=== PATIENT | female | born 2000 | race Caucasian/White ===

== ENCOUNTER 2022-06-16 19:27 | Emergency (ER) | payer BC, OTHER ==
--- OUTSIDE RECORDS SUMMARY | 2022-06-16 19:34 | XMS REPORT | Continuity of Care Document ---
:2000 Author Organization [facility] t Address [address] [place] [address] Support Name Relationship Address Phone ELIESER WILDER [phone] [facility] [facility] [address] [place] [phone] [place] [phone] ELIESER WILDER [phone] [facility] [facility] [address] [phone] [place] [address] YA ZAMUDIO E [phone] 3 [place] [address] Shreya Zamudio Mother [phone] 418 [place] [address] PHYSICIAN, NO Primary Care Physician Unavailable Unavailab MD JENNIFER Osborn Admitting Provider [address] [phone] [place] [address] ELIESER WILDER Family Member [address] [place] [address] MD JONO Emergency Provider [address] [phone] GALLITO Monge [place] [phone] MD WANDA CLEARWATER Emergency Provider [address] [email or web address] [address] DO GEE FENG Admitting Provider [address] [facility] [address] MD HARSH HUIZAR Emergency Provider [address] [place] [address] MD Salvador Simons Emergency Provider [address] [place] [phone] DO SALVADOR SIMONS Emergency Provider [facility] [place] [address] MD VERNELL HERNÁNDEZ Emergency Provider [facility] [place] [address] Care Team Providers Name Role Phone Fernanda Hardwick Primary Care Physician Cruz Murphy Attending Clinician Unavailable IHDE_G Attending Clinician Unavailable Jaswant Taylor MD Attending Clinician [phone] JASWANT TAYLOR Attending Clinician Unavailable VERNELL HERNÁNDEZ Attending Clinician Unavailable Salvador Simons Attending Clinician Unavailable Amy Pal Attending Clinician Unavailable PAT HUTCHINSON Attending Clinician Unavailable Harry_Pappas Attending Clinician Unavailable CHERISE ORTIZ Attending Clinician Unavailable Jennifer Boothe Attending Clinician Unavailable HARSH HUIZAR Attending Clinician Unavailable Gee Feng Attending Clinician Unavailable GALLITO DE LA CRUZ Attending Clinician Unavailable RIDGE SANTOS Attending Clinician Unavailable Cruz Murphy Admitting Clinician Unavailable Physician, No Primary or Family Admitting Clinician Unavaila ble IHDE_G Admitting Clinician Unavailable G_Pappas Admitting Clinician Unavailable Gee Feng Admitting Clinician Unavailable Jennifer Boothe Admitting Clinician Unavailable Payers Payer Name Policy Type Policy Number Effective Date Expiration Date Donna felix [place] [id number] 2007 (PPO) 00:00:00 [facility] [id number] 2020 [place]:00 STAR+PLUS (MEDICAID REPLACEMENT - HMO) Problems Condition Condition Condition Status Onset Resolution Last Treating Co mments Source Name Details Category Date Date Treatment Clinician Date Mild Mild Problem Active [facility] hyperemesi Hyperemesi 9-15 da s-not s-not 00:00: Medical delivered Delivered 00 Grou p Allergies, Adverse Reactions, Alerts Allergy Allergy Status Severity Reaction(s) Onset Inactive Treating Comm ents Source Name Type Date Date Clinician No Known DA Active [facility] 4[facility] Clear s 00:[facility]: [place] KETAMINE [facility] Ket[facility] Drug [facility] Ketamine Allergy Active [facility] Medical e Group Social History Social Habit Start Date Stop Date Quantity Comments Source Tobacco use and 2022-05-12 2022-05-12 [address] [facility] exposure [facility]00 [facility]00 [facility] Sex Assigned At 2000 2001 [facility] gadiel 00:00:00 00:00:00 [facility] Center Smoking Status Start Date Stop Date Source Never smoked tobacco [facility] Medications Ordered Filled Start Stop Current Ordering Indication Dosage Frequency Signature Comments Components Source Medication Medication Date Date Medication? Clinician (SIG) Name Name PARoxetine Yes 40mg QD Take 1 [facility] 40 2-01 tablet (40 [facility] es [facility] tablet 00:00: mg total) Med ical 00 by mouth Center in the morning. PARoxetine Yes 40mg QD Take 1 [facility] 40 2-01 tablet (40 [facility] MG tablet 00:00: mg total) Med ical 00 by mouth Center in the morning. PARoxetine Yes 40mg QD Take 1 [facility] 2-01 tablet (40 Julius es MG tablet 00:00: mg total) Med ical 00 by mouth Center in the morning. [facility] Fe 2021-02 No [facility] Fe [facility] 03/07 (28) 1 03/07 (28) 1 2-13 03/07 () da mg-20 mcg mg-20 mcg 00:00: 1 mg-20 Medical (21)/75 mg (21)/75 mg 00 mcg Joann up (7) tablet (7) tablet (21)/75 mg TAKE 1 TAKE 1 (7) tablet TABLET BY TABLET BY TAKE 1 MOUTH EVERY MOUTH EVERY TABLET BY DAY DAY MOUTH EVERY DAY esomeprazol esomeprazol 2021-02 No esomeprazo [facility] e magnesium e magnesium 2-13 le d a 40 mg 40 mg 00:00: magnesium Medica l capsule,del capsule,del 00 40 mg Group ayed ayed capsule,de release release layed release paroxetine paroxetine 2021-02 No paroxetine [facility] 40 mg 40 mg 2-13 40 mg da tablet tablet 00:00: tablet Medical 00 Group esomeprazol esomeprazol 2021-02 No esomeprazo [facility] e magnesium e magnesium 2-13 le d a 40 mg 40 mg 00:00: magnesium Medica l capsule,del capsule,del 00 40 mg Group ayed ayed capsule,de release release layed release ParaGard T ParaGard T No ParaGard T [facility] 380A 380 380A 380 9-09 380A 380 da square mm square mm 15:22: square mm Medical intrauterin intrauterin 00 intrauteri Group e e ne deviceTake deviceTake deviceTake 1 device by 1 device by 1 device intrauterin intrauterin by e route. e route. intrauteri ne route. doxycycline doxycycline No 1capsul BID doxycyclin [facility] monohydrate monohydrate e(s) e d a 100 mg 100 mg monohydrat Medic al capsule capsule e 100 mg Group Take 1 Take 1 capsule capsule capsule Take 1 twice a day twice a day capsule by oral by oral twice a route for 7 route for 7 day by days. days. oral route for 7 days. Flagyl 500 Flagyl 500 No 1 BID Flagyl 500 [facility] mg tablet mg tablet mg tablet da Take 1 Take 1 Take 1 Medical tablet tablet tablet Group twice a day twice a day twice a by oral by oral day by route for 7 route for 7 oral route days. days. for 7 days. fluconazole fluconazole No 1 fluconazol [facility] 150 mg 150 mg e 150 mg da tablet Take tablet Take tablet Medical 1 tablet 1 tablet Take 1 Group every 72 every 72 tablet hours by hours by every 72 oral route. oral route. hours by oral route. ParaGard T ParaGard T No ParaGard T [facility] 380A 380 380A 380 380A 380 da square mm square mm square mm Medical intrauterin intrauterin intrauteri Group e device e device ne device Vitafol Vitafol No Vitafol [facility] Ultra 29 mg Ultra 29 mg Ultra 29 da iron-1 iron-1 mg iron-1 Medica l mg-200 mg mg-200 mg mg-200 mg Group capsule capsule capsule doxycycline doxycycline No doxycyclin [facility] monohydrate monohydrate e d a 100 mg 100 mg monohydrat Medic al capsule capsule e 100 mg Group TAKE 1 TAKE 1 capsule CAPSULE BY CAPSULE BY TAKE 1 MOUTH TWICE MOUTH TWICE CAPSULE BY DAILY FOR 7 DAILY FOR 7 MOUTH DAYS DAYS TWICE DAILY FOR 7 DAYS esomeprazol esomeprazol No esomeprazo [facility] e magnesium e magnesium le d a 40 mg 40 mg magnesium Medical capsule,del capsule,del 40 mg Group ayed ayed capsule,de release release layed release fluconazole fluconazole No fluconazol [facility] 150 mg 150 mg e 150 mg da tablet TAKE tablet TAKE tablet Medical 1 TABLET BY 1 TABLET BY TAKE 1 Group MOUTH EVERY MOUTH EVERY TABLET BY 72 HOURS 72 HOURS MOUTH EVERY 72 HOURS metronidazo metronidazo No metronidaz [facility] le 500 mg le 500 mg ole 500 mg da tablet TAKE tablet TAKE tablet Medical 1 TABLET BY 1 TABLET BY TAKE 1 Group MOUTH TWICE MOUTH TWICE TABLET BY DAILY FOR 7 DAILY FOR 7 MOUTH DAYS DAYS TWICE DAILY FOR 7 DAYS ondansetron ondansetron No ondansetro [facility] 8 mg 8 mg n 8 mg da disintegrat disintegrat disintegra Medical ing tablet ing tablet tin Joann up DISSOLVE 1 DISSOLVE 1 tablet TABLET BY TABLET BY DISSOLVE 1 MOUTH EVERY MOUTH EVERY TABLET BY 8 HOURS 8 HOURS MOUTH NEEDED NEEDED EVERY 8 HOURS NEEDED ParaGard T ParaGard T No 1device ParaGard T [facility] 380A 380 380A 380 (s) 380A 380 da square mm square mm square mm Medical intrauterin intrauterin intrauteri Group e device e device ne device Take 1 Take 1 Take 1 device by device by device by intrauterin intrauterin intrauteri e route. e route. ne route. Vitafol Vitafol No Vitafol [facility] Ultra 29 mg Ultra 29 mg Ultra 29 da iron-1 iron-1 mg iron-1 Medica l mg-200 mg mg-200 mg mg-200 mg Group capsule capsule capsule doxycycline doxycycline No doxycyclin [facility] monohydrate monohydrate e d a 100 mg 100 mg monohydrat Medic al capsule capsule e 100 mg Group TAKE 1 TAKE 1 capsule CAPSULE BY CAPSULE BY TAKE 1 MOUTH TWICE MOUTH TWICE CAPSULE BY DAILY FOR 7 DAILY FOR 7 MOUTH DAYS DAYS TWICE DAILY FOR 7 DAYS esomeprazol esomeprazol No esomeprazo [facility] e magnesium e magnesium le d a 40 mg 40 mg magnesium Medical capsule,del capsule,del 40 mg Group ayed ayed capsule,de release release layed release fluconazole fluconazole No fluconazol [facility] 150 mg 150 mg e 150 mg da tablet TAKE tablet TAKE tablet Medical 1 TABLET BY 1 TABLET BY TAKE 1 Group MOUTH EVERY MOUTH EVERY TABLET BY 72 HOURS 72 HOURS MOUTH EVERY 72 HOURS metronidazo metronidazo No metronidaz [facility] le 500 mg le 500 mg ole 500 mg da tablet TAKE tablet TAKE tablet Medical 1 TABLET BY 1 TABLET BY TAKE 1 Group MOUTH TWICE MOUTH TWICE TABLET BY DAILY FOR 7 DAILY FOR 7 MOUTH DAYS DAYS TWICE DAILY FOR 7 DAYS ondansetron ondansetron No ondansetro [facility] 8 mg 8 mg n 8 mg da disintegrat disintegrat disintegra Medical ing tablet ing tablet ting Joann up DISSOLVE 1 DISSOLVE 1 tablet TABLET BY TABLET BY DISSOLVE 1 MOUTH EVERY MOUTH EVERY TABLET BY 8 HOURS 8 HOURS MOUTH NEEDED NEEDED EVERY 8 HOURS NEEDED ParaGard T ParaGard T No 1device ParaGard T [facility] 380A 380 380A 380 (s) 380A 380 da square mm square mm square mm Medical intrauterin intrauterin intrauteri Group e device e device ne device Take 1 Take 1 Take 1 device by device by device by intrauterin intrauterin intrauteri e route. e route. ne route. Vitafol Vitafol No Vitafol [facility] Ultra 29 mg Ultra 29 mg Ultra 29 da iron-1 iron-1 mg iron-1 Medica l mg-200 mg mg-200 mg mg-200 mg Group capsule capsule capsule acetaminoph acetaminoph No acetaminop [facility] en 300 en 300 hen 300 da mg-codeine mg-codeine mg-codeine Medical 30 mg 30 mg 30 mg Group tablet TAKE tablet TAKE tablet 1 TABLET BY 1 TABLET BY TAKE 1 MOUTH EVERY MOUTH EVERY TABLET BY 6 HOURS 6 HOURS MOUTH NEEDED FOR NEEDED FOR EVERY 6 DENTAL PAIN DENTAL PAIN HOURS NEEDED FOR DENTAL PAIN chlorhexidi chlorhexidi No chlorhexid [facility] ne ne ine da gluconate gluconate gluconate Medical 0.12 % 0.12 % 0.12 % Group mouthwash mouthwash mouthwash SWISH 15 ML SWISH 15 ML SWISH 15 FOR 30 FOR 30 ML FOR 30 SECONDS AND SECONDS AND SECONDS SPIT TWICE SPIT TWICE AND SPIT DAILY DAILY TWICE DAILY esomeprazol esomeprazol No esomeprazo [facility] e magnesium e magnesium le d a 40 mg 40 mg magnesium Medical capsule,del capsule,del 40 mg Group ayed ayed capsule,de release release layed release fluconazole fluconazole No fluconazol [facility] 150 mg 150 mg e 150 mg da tablet TAKE tablet TAKE tablet Medical 1 TABLET BY 1 TABLET BY TAKE 1 Group MOUTH EVERY MOUTH EVERY TABLET BY 72 HOURS 72 HOURS MOUTH EVERY 72 HOURS ibuprofen ibuprofen No ibuprofen [facility] 600 mg 600 mg 600 mg da tablet TAKE tablet TAKE tablet Medical 1 TABLET BY 1 TABLET BY TAKE 1 Group MOUTH EVERY MOUTH EVERY TABLET BY 6 HOURS 6 HOURS MOUTH NEEDED NEEDED EVERY 6 HOURS NEEDED No 1 Q1D [facility] 03/07 () 1 03/07 () 1 03/07 () da mg-20 mcg mg-20 mcg 1 mg-20 Me dical (21)/75 mg (21)/75 mg mcg Joann up (7) tablet (7) tablet (21)/75 mg Take 1 Take 1 (7) tablet tablet tablet Take 1 every day every day tablet by oral by oral every day route. route. by oral route. pantoprazol pantoprazol No pantoprazo [facility] e 40 mg e 40 mg le 40 mg da tablet,noé tablet,noé tablet,del Medical yed release yed release ayed G roup release ParaGard T ParaGard T No 1device ParaGard T [facility] 380A 380 380A 380 (s) 380A 380 da square mm square mm square mm Medical intrauterin intrauterin intrauteri Group e device e device ne device Take 1 Take 1 Take 1 device by device by device by intrauterin intrauterin intrauteri e route. e route. ne route. paroxetine paroxetine No paroxetine [facility] 40 mg 40 mg 40 mg da tablet tablet tablet Medical Group Bl[facility] Fe Bl[facility]ovi Fe No Bl[place] Fe [facility] 03/07 () 1 03/07 () 1 03/07 () da mg-20 mcg mg-20 mcg 1 mg-20 Me dical (21)/75 mg (21)/75 mg mcg Joann up (7) tablet (7) tablet (21)/75 mg TAKE 1 TAKE 1 (7) tablet TABLET BY TABLET BY TAKE 1 MOUTH EVERY MOUTH EVERY TABLET BY DAY DAY MOUTH EVERY DAY paroxetine paroxetine No paroxetine [facility] 40 mg 40 mg 40 mg da tablet tablet tablet Medical Group [place] Fe Blisovi Fe No Bl[place] Fe [facility] 03/07 () 1 03/07 () 1 03/07 () da mg-20 mcg mg-20 mcg 1 mg-20 Me dical (21)/75 mg (21)/75 mg mcg Joann up (7) tablet (7) tablet (21)/75 mg TAKE 1 TAKE 1 (7) tablet TABLET BY TABLET BY TAKE 1 MOUTH EVERY MOUTH EVERY TABLET BY DAY DAY MOUTH EVERY DAY cholestyram cholestyram No cholestyra [facility] ine (with ine (with mine (with da sugar) 4 sugar) 4 sugar) 4 Med ical gram powder gram powder gram G roup for susp in for susp in powder for a packet a packet susp in a packet pantoprazol pantoprazol No pantoprazo [facility] e 40 mg e 40 mg le 40 mg da tablet,noé tablet,noé tablet,del Medical yed release yed release ayed G roup TAKE 1 TAKE 1 release TABLET BY TABLET BY TAKE 1 MOUTH DAILY MOUTH DAILY TABLET BY MOUTH DAILY paroxetine paroxetine No paroxetine [facility] 40 mg 40 mg 40 mg da tablet tablet tablet Medical Group [place] Fe Blisovi Fe No Blisovi Fe [facility] 03/07 () 1 03/07 () 1 03/07 () da mg-20 mcg mg-20 mcg 1 mg-20 Me dical (21)/75 mg (21)/75 mg mcg Joann up (7) tablet (7) tablet (21)/75 mg TAKE 1 TAKE 1 (7) tablet TABLET BY TABLET BY TAKE 1 MOUTH EVERY MOUTH EVERY TABLET BY DAY DAY MOUTH EVERY DAY cholestyram cholestyram No cholestyra [facility] ine (with ine (with mine (with da sugar) 4 sugar) 4 sugar) 4 Med ical gram powder gram powder gram G roup for susp in for susp in powder for a packet a packet susp in a packet pantoprazol pantoprazol No pantoprazo [facility] e 40 mg e 40 mg le 40 mg da tablet,noé tablet,noé tablet,del Medical yed release yed release ayed G roup TAKE 1 TAKE 1 release TABLET BY TABLET BY TAKE 1 MOUTH DAILY MOUTH DAILY TABLET BY MOUTH DAILY paroxetine paroxetine No paroxetine [facility] 40 mg 40 mg 40 mg da tablet tablet tablet Medical Group amoxicillin amoxicillin No amoxicilli [facility] [id number] n 875 da mg-potassiu mg-potassiu mg-potassi Medical m m um Group clavulanate clavulanate clavulanat 125 mg 125 mg e 125 mg tablet TAKE tablet TAKE tablet 1 TABLET BY 1 TABLET BY TAKE 1 MOUTH TWICE MOUTH TWICE TABLET BY DAILY FOR DAILY FOR MOUTH INFECTION INFECTION TWICE DAILY FOR INFECTION [facility] Fe Blisovi Fe No Bl[place] Fe [facility] 03/07 (28) 1 03/07 (28) 1 03/07 () da mg-20 mcg mg-20 mcg 1 mg-20 Me dical (21)/75 mg (21)/75 mg mcg Joann up (7) tablet (7) tablet (21)/75 mg TAKE 1 TAKE 1 (7) tablet TABLET BY TABLET BY TAKE 1 MOUTH EVERY MOUTH EVERY TABLET BY DAY DAY MOUTH EVERY DAY cholestyram cholestyram No cholestyra [facility] ine (with ine (with mine (with da sugar) 4 sugar) 4 sugar) 4 Med ical gram powder gram powder gram G roup for susp in for susp in powder for a packet a packet susp in a packet ibuprofen ibuprofen No 1 Q8H ibuprofen [facility] 800 mg 800 mg 800 mg da tablet Take tablet Take tablet Medical 1 tablet 1 tablet Take 1 Group every 8 every 8 tablet hours by hours by every 8 oral route oral route hours by as needed. as needed. oral route as needed. ketorolac ketorolac No ketorolac [facility] 10 mg 10 mg 10 mg da tablet TAKE tablet TAKE tablet Medical 1 TABLET BY 1 TABLET BY TAKE 1 Group MOUTH EVERY MOUTH EVERY TABLET BY 6 HOURS 6 HOURS MOUTH NEEDED FOR NEEDED FOR EVERY 6 PAIN PAIN HOURS NEEDED FOR PAIN pantoprazol pantoprazol No pantoprazo [facility] e 40 mg e 40 mg le 40 mg da tablet,noé tablet,noé tablet,del Medical yed release yed release ayed G roup TAKE 1 TAKE 1 release TABLET BY TABLET BY TAKE 1 MOUTH DAILY MOUTH DAILY TABLET BY MOUTH DAILY paroxetine paroxetine No paroxetine [facility] 40 mg 40 mg 40 mg da tablet tablet tablet Medical Group promethazin promethazin No promethazi [facility] e 25 mg e 25 mg ne 25 mg da tablet TAKE tablet TAKE tablet Medical 1 TABLET BY 1 TABLET BY TAKE 1 Group MOUTH EVERY MOUTH EVERY TABLET BY 6 HOURS FOR 6 HOURS FOR MOUTH NAUSEA NAUSEA EVERY 6 HOURS FOR NAUSEA Immunizations Ordered Immunization Filled Immunization Date Status Commen ts Source Name Name Tdap Tdap 2021-03-07 Completed [facility] Group Tdap Tdap 2021-03-07 Completed [facility] 00:00:00 Medical Group Tdap Tdap 2021-03-07 Completed [facility] 00:00:00 Medical Group influenza, influenza, 2021-01-24 Completed [facility] injectable, injectable, 00:00:00 Medical Grou p quadrivalent, quadrivalent, preservative free preservative free influenza, influenza, 2021-01-24 Completed [facility] injectable, injectable, 00:00:00 Medical Grou p quadrivalent, quadrivalent, preservative free preservative free influenza, influenza, 2021-01-24 Completed [facility] injectable, injectable, 00:00:00 Medical Grou p quadrivalent, quadrivalent, preservative free preservative free influenza, influenza, 2021-01-24 Completed [facility] injectable, injectable, 00:00:00 Medical Grou p quadrivalent, quadrivalent, preservative free preservative free HPV, unspecified HPV, unspecified 2014-08-03 Completed [facility] formulation - ML formulation - ML 00:00:00 Ga dical Group HPV, unspecified HPV, unspecified 2014-08-03 Completed [facility] formulation - ML formulation - ML 00:00:00 Me dical Group meningococcal MCV4P meningococcal MCV4P 2012-11-08 Completed [facility] - ML - ML 00:00:00 Medical Group Tdap - ML Tdap - ML 2012-11-08 Completed [facility] 00:00:00 Medical Group meningococcal MCV4P meningococcal MCV4P 2012-11-08 Completed [facility] - ML - ML 00:00:00 Medical Group Tdap - ML Tdap - ML 2012-11-08 Completed [facility] 00:00:00 Medical Group influenza, seasonal, influenza, seasonal, 2011-12-15 Completed [facility] injectable - ML injectable - ML 00:00:00 Medi [facility] Group influenza, seasonal, influenza, seasonal, 2011-12-15 Completed [facility] injectable - ML injectable - ML 00:00:00 Medi anurad[facility] Group influenza, seasonal, influenza, seasonal, 2009-12-17 Completed [facility] injectable - ML injectable - ML 00:00:00 Medi an[facility]ad[facility] Group influenza, seasonal, influenza, seasonal, 2009-12-17 Completed [facility] injectable - ML injectable - ML 00:00:00 Medi [facility] Group Hep B, adolescent or Hep B, adolescent or 2001 Completed [facility] pediatric - ML pediatric - ML 00:00:00 Medica l Group Hep B, adolescent or Hep B, adolescent or 2001 Completed [facility] pediatric - ML pediatric - ML 00:00:00 Medica l Group Vital Signs Vital Name Observation Time Observation Value Comments Source BP Diastolic 2022-05-21 00:00:00 80 mm[Hg] [facility] Height 2022-05-21 00:00:00 61 [in_i] [facility] BMI (Body Mass 2022-05-21 00:00:00 40 kg/m2 [facility]) Group BP Systolic 2022-05-21 00:00:00 122 mm[Hg] [facility] Body Weight 2022-05-21 00:00:00 211.7 [lb_av] [facility] HEIGHT 2022-05-12 15:22:00 154.9 cm WEIGHT 2022-05-12 15:22:00 95.346 kg HEIGHT 2022-05-12 15:22:00 154.9 cm WEIGHT 2022-05-12 15:22:00 95.346 kg BP Diastolic 2022-04-15 00:00:00 80 mm[Hg] [facility] Height 2022-04-15 00:00:00 61 [in_i] [facility] BMI (Body Mass 2022-04-15 00:00:00 41.2 kg/m2 [facility]) Group BP Systolic 2022-04-15 00:00:00 120 mm[Hg] [facility] Body Weight 2022-04-15 00:00:00 218 [lb_av] [facility] BP Diastolic 2022-04-03 00:00:00 78 mm[Hg] [facility] Height 2022-04-03 00:00:00 61 [in_i] [facility] BMI (Body Mass 2022-04-03 00:00:00 41.2 kg/m2 [facility]) Group BP Systolic 2022-04-03 00:00:00 138 mm[Hg] [facility] Body Weight 2022-04-03 00:00:00 218 [lb_av] [facility] BP Diastolic 2022-02-27 00:00:00 90 mm[Hg] [facility] Height 2022-02-27 00:00:00 61 [in_i] [facility] BMI (Body Mass 2022-02-27 00:00:00 40.1 kg/m2 [facility]) Group BP Systolic 2022-02-27 00:00:00 140 mm[Hg] [facility] Body Weight 2022-02-27 00:00:00 212 [lb_av] [facility] BP Diastolic 2022-01-28 00:00:00 72 mm[Hg] [facility] Height 2022-01-28 00:00:00 61 [in_i] [facility] BMI (Body Mass 2022-01-28 00:00:00 40.6 kg/m2 [facility] Group BP Systolic 2022-01-28 00:00:00 132 mm[Hg] [facility] Body Weight 2022-01-28 00:00:00 215 [lb_av] [facility] BP Diastolic 2022-01-15 00:00:00 82 mm[Hg] [facility] Height 2022-01-15 00:00:00 61 [in_i] [facility] BMI (Body Mass 2022-01-15 00:00:00 39.9 kg/m2 [facility] Group BP Systolic 2022-01-15 00:00:00 119 mm[Hg] [facility] Body Weight 2022-01-15 00:00:00 211.1 [lb_av] [facility] BP Diastolic 2021-10-23 00:00:00 98 mm[Hg] [facility] Height 2021-10-23 00:00:00 61 [in_i] [facility] BMI (Body Mass 2021-10-23 00:00:00 38.7 kg/m2 [facility] Group BP Systolic 2021-10-23 00:00:00 127 mm[Hg] [facility] Body Weight 2021-10-23 00:00:00 205 [lb_av] [facility] Height 2021-10-16 00:00:00 61 [in_i] [facility] BP Diastolic 2021-10-16 00:00:00 82 mm[Hg] [facility] Height 2021-10-16 00:00:00 61 [in_i] [facility] BP Systolic 2021-10-16 00:00:00 124 mm[Hg] [facility] BP Diastolic 2021-08-06 00:00:00 73 mm[Hg] [facility] Height 2021-08-06 00:00:00 61 [in_i] [facility] BMI (Body Mass 2021-08-06 00:00:00 38 kg/m2 [facility] BP Systolic 2021-08-06 00:00:00 113 mm[Hg] [facility] Body Weight 2021-08-06 00:00:00 201 [lb_av] [facility] BP Diastolic 2021-06-14 00:00:00 84 mm[Hg] [facility] Height 2021-06-14 00:00:00 61 [in_i] [facility] BMI (Body Mass 2021-06-14 00:00:00 36.2 kg/m2 [facility] BP Systolic 2021-06-14 00:00:00 120 mm[Hg] [facility] Body Weight 2021-06-14 00:00:00 191.5 [lb_av] [facility] BP Diastolic 2021-05-29 00:00:00 86 mm[Hg] [facility] Height 2021-05-29 00:00:00 61 [in_i] [facility] BMI (Body Mass 2021-05-29 00:00:00 36.3 kg/m2 [facility] BP Systolic 2021-05-29 00:00:00 128 mm[Hg] [facility] Body Weight 2021-05-29 00:00:00 192 [lb_av] [facility] BP Diastolic 2021-05-20 00:00:00 83 mm[Hg] [facility] Height 2021-05-20 00:00:00 61 [in_i] [facility] BMI (Body Mass 2021-05-20 00:00:00 36.5 kg/m2 [facility] BP Systolic 2021-05-20 00:00:00 137 mm[Hg] [facility] Body Weight 2021-05-20 00:00:00 193 [lb_av] [facility] BP Diastolic 2021-05-08 00:00:00 77 mm[Hg] [facility] Height 2021-05-08 00:00:00 61 [in_i] [facility] BMI (Body Mass 2021-05-08 00:00:00 35.7 kg/m2 [facility] BP Systolic 2021-05-08 00:00:00 112 mm[Hg] [facility] Body Weight 2021-05-08 00:00:00 188.7 [lb_av] [facility] BP Diastolic 2021-04-12 00:00:00 88 mm[Hg] [facility] Height 2021-04-12 00:00:00 61 [in_i] [facility] BMI (Body Mass 2021-04-12 00:00:00 40.8 kg/m2 [facility] BP Systolic 2021-04-12 00:00:00 135 mm[Hg] [facility] Body Weight 2021-04-12 00:00:00 216 [lb_av] [facility] BP Diastolic 2021-04-05 00:00:00 83 mm[Hg] [facility] Height 2021-04-05 00:00:00 61 [in_i] [facility] BMI (Body Mass 2021-04-05 00:00:00 39.8 kg/m2 [facility]) Group BP Systolic 2021-04-05 00:00:00 131 mm[Hg] [facility] Body Weight 2021-04-05 00:00:00 210.9 [lb_av] [facility] BP Diastolic 2021-03-29 00:00:00 84 mm[Hg] [facility] Height 2021-03-29 00:00:00 61 [in_i] [facility] BMI (Body Mass 2021-03-29 00:00:00 39.8 kg/m2 [facility]) Group BP Systolic 2021-03-29 00:00:00 135 mm[Hg] [facility] Body Weight 2021-03-29 00:00:00 210.9 [lb_av] [facility] BP Diastolic 2021-03-04 00:00:00 89 mm[Hg] [facility] Height 2021-03-04 00:00:00 61 [in_i] [facility] BMI (Body Mass 2021-03-04 00:00:00 39.5 kg/m2 [facility]) Group BP Systolic 2021-03-04 00:00:00 146 mm[Hg] [facility] Body Weight 2021-03-04 00:00:00 208.9 [lb_av] [facility] BP Diastolic 2021-02-01 00:00:00 79 mm[Hg] [facility] Height 2021-02-01 00:00:00 61 [in_i] [facility] BP Systolic 2021-02-01 00:00:00 144 mm[Hg] [facility] BP Diastolic 2021-01-04 00:00:00 85 mm[Hg] [facility] Height 2021-01-04 00:00:00 61 [in_i] [facility] BMI (Body Mass 2021-01-04 00:00:00 37.4 kg/m2 [facility] program therapist Medical Index) Group BP Systolic 2021-01-04 00:00:00 126 mm[Hg] [facility] Body Weight 2021-01-04 00:00:00 198 [lb_av] [facility] BP Diastolic 2020-12-07 00:00:00 80 mm[Hg] [facility] Height 2020-12-07 00:00:00 61 [in_i] [facility] BMI (Body Mass 2020-12-07 00:00:00 36.8 kg/m2 [facility] Index) Group BP Systolic 2020-12-07 00:00:00 133 mm[Hg] [facility] Body Weight 2020-12-07 00:00:00 194.5 [lb_av] [facility] BP Diastolic 2020-11-15 00:00:00 79 mm[Hg] [facility] Height 2020-11-15 00:00:00 61 [in_i] [facility] BMI (Body Mass 2020-11-15 00:00:00 36.1 kg/m2 [facility] Index) Group BP Systolic 2020-11-15 00:00:00 131 mm[Hg] [facility] Body Weight 2020-11-15 00:00:00 190.8 [lb_av] [facility] BP Diastolic 2020-10-31 00:00:00 83 mm[Hg] [facility] Height 2020-10-31 00:00:00 61 [in_i] [facility] BMI (Body Mass 2020-10-31 00:00:00 36.1 [facility] BP Systolic 2020-10-31 00:00:00 127 mm[Hg] [facility] Body Weight 2020-10-31 00:00:00 191.1 [lb_av] [facility] Diastolic blood 2022-05-12 15:22:00 96 mm[Hg] [facility] 2022-05-12 15:22:00 90 /min [facility] Body temperature 2022-05-12 15:22:00 36.22 [facility] Body height 2022-05-12 15:22:00 154.9 cm [facility] Body weight 2022-05-12 15:22:00 97.977 kg [facility] BMI 2022-05-12 15:22:00 40.81 kg/m2 [facility] Systolic blood 2022-05-12 15:22:00 133 mm[Hg] [facility] Procedures Procedure Date / Time Performing Source Performed Clinician US, transvaginal 2022-05-21 [facility] 00:00:00 Medical Group US, transvaginal 2021-10-23 [facility] 00:00:00 Medical Group US, pelvis 2021-10-16 [facility] 00:00:00 Medical Group Laparoscopic Cholecystectomy 2021-05-04 [facility] Delivery 2021-04-20 [facility] 00:00:00 Medical Group US, obstetric, limited 2021-03-29 [facility] 00:00:00 Medical Group US, obstetric, limited 2021-03-04 [facility] 00:00:00 Medical Group ULTRASOUND, UTERUS REAL 2020-12-07 [facility] TIME WITH IMAGE DOC, AND 00:00:00 M edical Group MATERNAL EVAL PLUS DETAILED ANATOMIC EXAMINATION, TRANSABDOMINAL APPROACH; SINGLE OR FIRST GESTATION US, obstetric, limited 2020-12-07 [facility] 00:00:00 Medical Group US, obstetric, limited 2020-11-15 [facility] 00:00:00 Medical Group US, obstetric, limited 2020-10-31 [facility] 00:00:00 Medical Group Procedure on Nose [facility] Remove Tonsils and Adenoids [facility] Colonoscopy [facility] Esophagogastroduodenoscopy (Surg) [facility] Laparoscopic Hiatus Hernia Repair [facility] Plan of Care Planned Activity Planned Date Details Comments Source Future Scheduled Test 2031-03-07 DTAP/TDAP/TD [facility] 00:00:00 VACCINES (3 - Td or Medical Center Tdap) [code = DTAP/TDAP/TD VACCINES (3 - Td or Tdap)] Future Scheduled Test 2031-03-07 DTAP/TDAP/TD [facility] 00:00:00 VACCINES (3 - Td or Medical Center Tdap) [code = DTAP/TDAP/TD VACCINES (3 - Td or Tdap)] Future Scheduled Test 2031-03-07 DTAP/TDAP/TD [facility] 00:00:00 VACCINES (3 - Td or Medical Center Tdap) [code = DTAP/TDAP/TD VACCINES (3 - Td or Tdap)] Future Scheduled Test 2023-05-[address] [facility] 00:00:00 [facility] r Screening (12+) [code = Tobacco Cessation Counseling and Screening (12+)] Future Scheduled Test 2023-05-[address] [facility] 00:00:00 [facility] r Screening (12+) [code = Tobacco Cessation Counseling and Screening (12+)] Future Scheduled Test 2023-05-[address] [facility] 00:00:00 [facility] Cent[facility] r Screening (12+) [code = Tobacco Cessation Counseling and Screening (12+)] Future Scheduled Test 2022-10-[address] [facility] 00:00:00 (Season Ended) Medical Cente r [code = INFLUENZA VACCINE (Season Ended)] Future Scheduled Test 2022-10-[address] [facility] 00:00:00 (Season Ended) Medical Cente r [code = INFLUENZA VACCINE (Season Ended)] Future Scheduled Test 2022-10-[address] [facility] 00:00:00 (Season Ended) Medical Cente r [code = INFLUENZA VACCINE (Season Ended)] Diagnostic Test 2022-05-21 test, [facility] Pending 00:00:00 urine [code = Group test, urine] Future Scheduled Test 2022-02-[address] [facility] 00:00:00 SCREENING (12+) Medical Cent er [code = DEPRESSION SCREENING (12+)] Future Scheduled Test 2022-02-[address] [facility] 00:00:00 SCREENING (12+) Medical Cent er [code = DEPRESSION SCREENING (12+)] Future Scheduled Test 2022-02-[address] [facility] 00:00:00 SCREENING (12+) Medical Cent er [code = DEPRESSION SCREENING (12+)] Future Scheduled Test 2022-02-[address] [facility] 00:00:00 SCREENING (12+) Medical Cent er [code = DEPRESSION SCREENING (12+)] Future Scheduled Test 2022-02-[address] [facility] 00:00:00 SCREENING (12+) Medical Cent er [code = DEPRESSION SCREENING (12+)] Future Scheduled Test 2022-02-[address] [facility] 00:00:00 SCREENING (12+) Medical Cent er [code = DEPRESSION SCREENING (12+)] Future Scheduled Test 2022-02-[address] [facility] 00:00:00 SCREENING (12+) Medical Cent er [code = DEPRESSION SCREENING (12+)] Future Scheduled Test 2021-10-[address] [facility] 00:00:00 (#1) [code = [facility] INFLUENZA VACCINE (#1)] Future Scheduled Test 2021-10-[address] [facility] 00:00:00 (#1) [code = [facility] INFLUENZA VACCINE (#1)] Future Scheduled Test 2021-10-[address] [facility] 00:00:00 (#1) [code = [facility] INFLUENZA VACCINE (#1)] Future Scheduled Test 2021-10-[address] [facility] 00:00:00 (#1) [code = [facility] INFLUENZA VACCINE (#1)] Future Scheduled Test [address] [facility] 00:00:00 (procedure) [code = [facility] [id number]] Future Scheduled Test [address] [facility] 00:00:00 (procedure) [code = [facility] [id number]] Future Scheduled Test [address] [facility] 00:00:00 (procedure) [code = [facility] [id number]] Future Scheduled Test 2020 DTAP/TDAP/TD [facility] 00:00:00 VACCINES (1 - Tdap) [facility] [code = DTAP/TDAP/TD VACCINES (1 - Tdap)] Future Scheduled Test 2020 DTAP/TDAP/TD [facility] 00:00:00 VACCINES (1 - Tdap) Medical Center [code = DTAP/TDAP/TD VACCINES (1 - Tdap)] Future Scheduled Test 2020 DTAP/TDAP/TD [facility] 00:00:00 VACCINES (1 - Tdap) Medical Center [code = DTAP/TDAP/TD VACCINES (1 - Tdap)] Future Scheduled Test 2020 DTAP/TDAP/TD [facility] 00:00:00 VACCINES (1 - Tdap) Medical Center [code = DTAP/TDAP/TD VACCINES (1 - Tdap)] Future Scheduled Test 2019-09-[address] [facility] 00:00:00 SCREENING [code = Medical Ce nter HEPATITIS C SCREENING] Future Scheduled Test 2019-09-[address] [facility] 00:00:00 SCREENING [code = Medical Ce nter HEPATITIS C SCREENING] Future Scheduled Test 2019-09-[address] [facility] 00:00:00 SCREENING [code = Medical Ce nter HEPATITIS C SCREENING] Future Scheduled Test 2019-09-[address] [facility] 00:00:00 SCREENING [code = Medical Ce nter HEPATITIS C SCREENING] Future Scheduled Test 2019-09-[address] [facility] 00:00:00 SCREENING [code = Medical Ce nter HEPATITIS C SCREENING] Future Scheduled Test 2019-09-[address] [facility] 00:00:00 SCREENING [code = Medical Ce nter HEPATITIS C SCREENING] Future Scheduled Test 2019-09-[address] [facility] 00:00:00 SCREENING [code = Medical Ce nter HEPATITIS C SCREENING] Future Scheduled Test [address] [facility] 00:00:00 [facility] Medical Cente r Screening (12+) [code = Tobacco Cessation Counseling and Screening (12+)] Future Scheduled Test [address] [facility] 00:00:00 [facility] Cent[facility] r Screening (12+) [code = Tobacco Cessation Counseling and Screening (12+)] Future Scheduled Test [address] [facility] 00:00:00 [facility] Cent[facility] r Screening (12+) [code = Tobacco Cessation Counseling and Screening (12+)] Future Scheduled Test [address] [facility] 00:00:00 [facility] Cent[facility] r Screening (12+) [code = Tobacco Cessation Counseling and Screening (12+)] Future Scheduled Test 2002-03-17 COVID-[address] [facility] (#1) [code = Medical Center COVID-19 VACCINE (#1)] Future Scheduled Test 2002-03-17 COVID-[address] [facility] 00:00:00 (#1) [code = Medical Center COVID-19 VACCINE (#1)] Future Scheduled Test 2002-03-17 COVID-[address] [facility] 00:00:00 (#1) [code = Medical Center COVID-19 VACCINE (#1)] Future Scheduled Test 2002-03-17 COVID-[address] [facility] 00:00:00 (#1) [code = Medical Center COVID-19 VACCINE (#1)] Future Scheduled Test 2002-03-17 COVID-[address] [facility] 00:00:00 (#1) [code = Medical Center COVID-19 VACCINE (#1)] Future Scheduled Test 2002-03-17 COVID-[address] [facility] 00:00:00 (#1) [code = Medical Center COVID-19 VACCINE (#1)] Future Scheduled Test 2002-03-17 COVID-[address] [facility] 00:[facility] (#1) [code = Medical Center COVID-19 VACCINE (#1)] Instructions [facility] Encounters Start End Encounter Admission Attending Care Care Encounter Source Date/Time Date/Time Type Type Clinicians Facility Department ID 2022-06-06 2022-06-10 Inpatient EM AIDA Murphy INTE.02 [id number] [facility] 17:37:00 15:28:00 [facility] 55 Devi an [facility] 2022-06-06 2022-06-06 Outpatient BHARTI Murphy LABO [id number] [facility] 22:59:00 22:59:00 [facility] 05 [facility] 2022-06-03 2022-06-03 Outpatient IHDE_G [facility] [id number] [facility] 00:00:00 00:00:00 0418 [facility] 2022-05-21 2022-05-21 Cherise MM [place] - [id number] [facility] 00:00:00 00:00:00 Discovery paty Ortiz [facility]: [address], OBGYN [address], [place] [address] , Ph. [phone] 2022-05-12 2022-05-12 Office TANJA Taylor [facility] [id number] 14:30:00 16:06:49 Visit [facility] 2022-05-12 2022-05-12 Office Leah [facility] [id number] 14:30:00 16:06:49 Visit [facility] 2022-05-12 2022-05-[address] [facility] [id number] 00:00:00 00:00:00 [facility] 2022-05-07 2022-05-08 emergency [id number] 19:39:00 00:28:00 [id number] [id number] 5eb 2022-05-07 2022-05-08 Emergency ER BETTY, [facility] [id number] [facility] 19:39:00 00:28:00 VERNELL [id number] [facility] 2022-05-06 2022-05-07 emergency [id number] 22:18:00 03:45:00 [id number] 5eb 2022-05-06 2022-05-07 Emergency ER Catspenser, [facility] [id number] [facility] 22:18:00 03:45:00 Salvador -[id number] [facility] 2022-04-30 2022-04-30 Telephone Kae [facility] [id number] 00:00[facility]00 00:00:00 [facility] 2022-04-30 2022-04-30 Telephone Kae [facility] [id number] [facility] 00:[facility]:00 00:00:00 Amy [facility] 2022-04-28 2022-04-28 Outpatient IHDE_G MMG MMG [id number] [facility] 00:00:00 00:00:00 0313 [facility] 2022-04-28 2022-04-28 Outpatient IHDE_G MM[facility] MMG [id number] [place] 00:00:00 00:00:00 0327 [facility] 2022-04-28 2022-04-28 Outpatient IHDE_G MMG MMG [id number] [place] 00:00:00 00:00:00 0405 [facility] 2022-04-28 2022-04-28 Outpatient IHDE_G MMG MMG [id number] [facility] 00:00:00 00:00:00 0406 [facility] 2022-04-15 2022-04-15 Outpatient UR IHDE, PAT [facility] D00 [id number] [facility] 08:39:00 08:39:00 -[id number] [facility] 2022-04-15 2022-04-15 Pat [facility] [place] - [id number] [facility] 00:00:00 00:00:00 Morro Brush MD: Medical Medica [address], General [address], [place] [address] , Ph. [phone] 2022-04-14 2022-04-14 Outpatient EL IHDPAT Back [facility] D00 [id number] [place] 06:34:00 06:34:00 -[id number] [facility] 2022-04-03 2022-04-03 Pat [facility] [place] - [id number] [facility] 00:00:00 00:00:00 Morro Brush MD: [facility] [address], General [address], [place] [address] , Ph. [phone] 2022-04-02 2022-04-02 Outpatient IHDE_G MMG [facility] [id number] [place] 00:00:00 00:00:00 0215 [facility] 2022-04-02 2022-04-02 Outpatient IHDE_G MMG MMG [id number] [facility] 00:00:00 00:00:00 0216 [facility] 2022-04-02 2022-04-02 Outpatient IHDE_G MMG MMG [id number] [place] 00:00:00 00:00:00 0228 [facility] 2022-04-02 2022-04-02 Outpatient IHDE_G MMG MMG [id number] [place] 00:00:00 00:00:00 0305 [facility] 2022-03-14 2022-03-14 Outpatient EL IHDEPAT [facility] D00 [id number] [place] 08:40:00 08:40:00 -[id number] [facility] 2022-03-07 2022-03-07 Outpatient EL IHDEPAT [facility] D00 [id number] [facility] 10:58:00 10:58:00 -[id number] [facility] 2022-02-27 2022-02-27 Pat [facility] [place] - [id number] [facility] 00:00:00 00:00:00 Morro Brush MD: Medical Medica [address] [facility] [address], [place] [address] , Ph. [phone] 2022-01-30 2022-01-30 Outpatient IHDE_G MM[facility] MMG [id number] [facility] 00:00:00 00:00:00 1229 [facility] 2022-01-30 2022-01-30 Outpatient IHDE_G MMG MMG [id number] [place] 00:00:00 00:00:00 0106 [facility] 2022-01-30 2022-01-30 Outpatient IHDE_G MMG MMG [id number] [place] 00:00:00 00:00:00 0111 [facility] 2022-01-30 2022-01-30 Outpatient IHDE_G MM[facility] MMG [id number] [place] 00:00:00 00:00:00 0112 [facility] 2022-01-30 2022-01-30 Outpatient IHDE_G MM[facility] MMG [id number] [place] 00:00:00 00:00:00 0116 [facility] 2022-01-30 2022-01-30 Outpatient IHDE_G MM[facility] MMG [id number] [place] 00:00:00 00:00:00 0126 [facility] 2022-01-30 2022-01-30 Outpatient IHDE_G MMG MMG [id number] [place] 00:00:00 00:00:00 0127 [facility] 2022-01-28 2022-01-28 Outpatient EL JASPER, PAT [facility] D00 [id number] [place] 14:48:00 14:48:00 -[id number] [facility] 2022-01-28 2022-01-28 Outpatient IHDE_G MMG MMG [id number] [place] 00:00:00 00:00:00 1213 [facility] 2022-01-28 2022-01-28 Outpatient IHDE_G MMG MMG [id number] [place] 00:00:00 00:00:00 1214 [facility] 2022-01-28 2022-01-28 Outpatient IHDE_G MM[facility] MMG [id number] [place] 00:00:00 00:00:00 1215 [facility] 2022-01-28 2022-01-28 Pat [facility] [place] - [id number] [facility] 00:00:00 00:00:00 Morro Brush MD: Medical Medica [address], [place] [address] , Ph. [phone] 2022-01-20 2022-01-20 Outpatient IHDE_G MM[facility] MMG [id number] [place] 00:00:00 00:00:00 1205 [facility] 2022-01-20 2022-01-20 Outpatient IHDE_G MM[facility] MMG [id number] [place] 00:00:00 00:00:00 1209 [facility] 2022-01-15 2022-01-15 Outpatient G_Pappas MM[facility] MMG [id number] [place] 00:00:00 00:00:00 1130 [facility] 2022-01-15 2022-01-15 Cherise MMG [place] - [id number] [facility] 00:00:00 00:00:00 Discovery paty Ortiz [facility]: [address] [address] , Ph. [phone] 2021-10-23 2021-10-23 Outpatient TANJA ORTIZ [facility] [id number] [place] 16:32:00 16:32:00 CHERISE -[id number] [facility] 2021-10-23 2021-10-23 Outpatient G_Pappas MMG MMG [id number] [place] 00:00:00 00:00:00 0907 [facility] 2021-10-23 2021-10-23 Cherise [facility] [place] - [id number] [facility] 00:00:00 00:00:00 Discovery paty Ortiz [facility]: [address] [address] , Ph. [phone] 2021-10-18 2021-10-18 Outpatient G_Pappas MMG [facility] [id number] [place] 00:00:00 00:00:00 0902 [facility] 2021-10-16 2021-10-16 Outpatient RO Boothe [facility] [id number] [place] 10:47:00 10:47:00 Jennifer -[id number] [facility] 2021-10-16 2021-10-16 Jennifer [facility] [facility] [place] - [id number] [place] 00:00:00 00:00:00 Ruddy Servin 0831 Óscar Mason MD: [address] [place] [address] , Ph. [phone] 2021-10-16 2021-10-16 Jennifer [facility] [place] - [id number] [facility] 00:00:00 00:00:00 Ruddy Mason [facility] MD: [address] [place] [address] , Ph. [phone] 2021-10-10 2021-10-10 Outpatient G_Pappas MM[facility] MMG [id number] [place] 00:00:00 00:00:00 0825 [facility] 2021-09-02 2021-09-02 Outpatient G_Pappas MMG MMG [id number] [place] 04:34:00 04:34:00 0718 [facility] 2021-08-06 2021-08-06 Outpatient G_Pappas MMG MMG [id number] [place] 04:50:00 04:50:00 0621 [facility] 2021-08-06 2021-08-06 Jennifer [facility] [place] - [id number] [facility] 00:00:00 00:00:00 Ruddy Mason [facility] MD: [address] [place] [address] , Ph. [phone] 2021-08-02 2021-08-02 Outpatient G_Pappas MM[facility] MMG [id number] [place] 05:14:00 05:14:00 0617 [facility] 2021-06-14 2021-06-14 Outpatient TARAN [facility] [id number] [place] 11:21:00 11:21:00 CHERISE -[id number] [facility] 2021-06-14 2021-06-14 Health System [place] - [id number] [place] 00:00:00 00:00:00 Discovery Angel 0429 da [facility]-: [address] [address] , Ph. [phone] 2021-05-29 2021-05-29 Jennifer [place] - [id number] 2 [place] 00:00:00 00:00:00 Ruddy Servin 0413 paty Boothe [facility] MD: [address] [place] [address] [address], [place] [address] , Ph. [phone] 2021-05-23 2021-05-23 Outpatient G_Pappas MM[facility] MMG [id number] [place] 06:12:00 06:12:00 0407 [facility] 2021-05-21 2021-05-22 Emergency ER ANETA HUIZARA [facility] [id number] [place] 20:33:00 01:12:00 -[id number] [facility] 2021-05-20 2021-05-20 Gee [place] [facility] - [id number] 2 [place] 00:00:00 00:00:00 DO Myke: [address] [place] [address] - [address], [place] [address] , Ph. [phone] 2021-05-15 2021-05-15 Outpatient G_Pappas MM[facility] MMG [id number] [place] 06:31:00 06:31:00 0330 [facility] 2021-05-08 2021-05-08 Cherise [place] - [id number] 2 [place] 00:00:00 00:00:00 Discovery Angel 0323 paty [facility]-: [address], [place] [address] , Ph. [phone] 2021-05-03 2021-05-04 Inpatient ER Myke [facility] [id number] [place] 21:19:00 18:05:00 Gee -[id number] [facility] 2021-05-01 2021-05-01 Emergency ER JONO [facility] [id number] [place] 18:29:00 21:46:00 GALLITO [id number] [facility] 2021-04-18 2021-04-22 Inpatient TANJA Boothe, [facility] MOB [id number] [place] 16:45:00 08:50:00 Jennifer -[id number] [facility] 2021-04-12 2021-04-12 Jennifer [place] [facility] [place] - [id number] [place] 00:00:00 00:00:00 Ruddy Isaac5 Óscar Mason Mediconesimo monge MD: [address] [address] , Ph. [phone] 2021-04-08 2021-04-08 Outpatient G_[facility] MMG [id number] [place] 11:03:00 11:03:00 022 [facility] 2021-04-05 2021-04-05 Jennifer [place] [facility] [place] - [id number] [place] 00:00:00 00:00:00 Ruddy Servin 0218 Óscar Mason MD: [address] [address] , Ph. [phone] 2021-04-01 2021-04-01 Outpatient G_[facility]appas MM[facility] MMG [id number] [place] 06:29:00 06:29:00 0214 [facility] 2021-03-29 2021-03-29 Jennifer [place] - [id number] 2 [place] 00:00:00 00:00:00 Ruddy Servin 021 Óscar Mason MD: [address] [place] [address] , Ph. [phone] 2021-03-25 2021-03-25 Outpatient G_Pappas MM[facility] MMG [id number] [place] 11:24:00 11:24:00 0207 [facility] 2021-03-18 2021-03-18 Outpatient G_[facility]appas MM[facility] MMG [id number] [place] 11:56:00 11:56:00 0131 [facility] 2021-03-04 2021-03-04 Jennifer [place] [facility] [place] - [id number] [place] 00:00:00 00:00:00 Ruddy Servin 0117 paty Boothe [facility] MD: [address] [address] , Ph. [phone] 2021-02-27 2021-02-27 Outpatient G[facility] MMG [id number] [place] 11:37:00 11:37:00 0112 [facility] 2021-02-01 2021-02-01 Outpatient TANJA Boothe [facility] [id number] [place] 10:34:00 10:34:00 Jennifer -[id number] [facility] 2021-02-01 2021-02-01 Jennifer G_[place]appas MMG [place] - [id number] 1 [place] 00:00:00 00:00:00 Ruddy [facility] MD: [address] [address] , Ph. [phone] 2021-01-28 2021-01-28 Outpatient G_[facility]as MM[facility] MMG [id number] [place] 06:32:00 06:32:00 1213 [facility] 2021-01-25 2021-01-25 Outpatient G_[facility] MM[facility] MMG [id number] [place] 01:34:00 01:34:00 1210 [facility] 2021-01-04 2021-01-04 Outpatient TANJA ORTIZ [facility] [id number] [place] 09:24:00 09:24:00 CHERISE -[id number] [facility] 2021-01-04 2021-01-04 Jennifer G_[place] MMG [place] - [id number] 1 [place] 00:00:00 00:00:00 Ruddy Mason, Medical Medica l MD: [address] [place] [id number] , Ph. [phone] 2020-12-07 2020-12-07 Outpatient RO Ward, [facility] [id number] [place] 11:30:00 11:30:00 Jennifer [id number] [facility] 2020-12-07 2020-12-07 Cherise G_Pappas MM [place] - [id number] 1 [place] 00:00:00 00:00:00 [facility] 1022 da [facility]: [address] [address] , Ph. [phone] 2020-12-03 2020-12-03 Outpatient G_[facility]as [facility]G [facility] [id number] [place] 12:08:00 12:08:00 1018 [facility] 2020-11-15 2020-11-15 Outpatient TANJA SANTOS [facility] [id number] [place] 11:23:00 11:23:00 RIDGE [id number] [facility] 2020-11-15 2020-11-15 [place] - [id number] 1 [place] 00:00:00 00:00:00 Discovery Carol 0930 paty MD: [address] [place] [address] , Ph. [phone] 2020-11-09 2020-11-09 Outpatient G_Pappas MMG [facility] [address]- 2020 [place] 11:42:00 11:42:00 0924 [facility] 2020-11-02 2020-11-02 Outpatient G_[place] [facility] [id number]- 2020 [place] 11:32:00 11:32:00 0917 [facility] 2020-10-31 2020-10-31 Outpatient TANJA ORTIZ [facility] [id number] [place] 11:07:00 11:07:00 CHERISE [id number] [facility] 2020-10-31 2020-10-31 Cherise Mcdonald_Pappas [place] - [id number] 1 [place] 00:00:00 00:00:00 Discovery Angel 914 da [facility]: [facility] [address] [place] [address] - [facility] [address], [place] [address] , Ph. [phone] 2020-10-15 2020-10-15 Outpatient G_Pappas MMG [facility] [address]- 2020 [place] 02:08:00 02:08:00 0830 [facility] 2020-10-09 2020-10-09 Outpatient G_Pappas MMG [facility] [address]- 2020 [place] 11:31:00 11:31:00 0824 [facility] Results Test Description Test Time Test Comments Results Result [facility] e Comments - MRI C-SPINE W/O 2022-06-10 CONT 12:01:00 [facility] 2000 Sex: F FAX: Cruz Murphy MD [phone] Camps: PM St: ADM Name: JOEL ZAMUDIO [facility] : 2000 Age/S: 21/F [address] Unit #: [id number] Loc: [address] [place] [address] Phys: Cruz Murphy MD Acct: [id number] Dis Date: Status: ADM IN PHONE #: [phone] Exam Date: 06/10/2022 1150 FAX #: Reason: numbness EXAMS: CPT: [id number] MRI C-SPINE W/O CONT 22140 Location: Exam: MRI of the cervical spine without contrast DATE: 06/10/2022 4:05 PM HISTORY: 21-year-old female with numbness TECHNIQUE: Multiplanar multisequence MR images of the cervical spine were obtained without intravenous contrast administration. COMPARISON: None FINDINGS: The height and the structure of the cervical vertebral bodies are well maintained. No bone marrow signal abnormality. The craniocervical junction is intact. No canal stenosis. No cord compression. No cord signal abnormality. No foraminal narrowing or discrete nerve root impingement. The prevertebral soft tissues are unremarkable. IMPRESSION: Unremarkable MRI of the cervical spine. at 1201 Reported and signed by: Erika Mares M.D. CC: Cruz Murphy MD Technologist: Vandana Mcdermott RT(R)(MR) Transcribed Date/Time/By: 06/10/2022 (1201) :Marissa.MOP Orig Print D/T: S: 06/10/2022 (8581) PAGE 1 Signed Report - MRI BRAIN W/O 2022-06-10 CONTRAST 11:59:00 [facility] 2000 Sex: F FAX: Cruz Murphy MD [phone] Camps: PM St: ADM Name: JOEL ZAMUDIO [address] : 2000 Age/S: 21/F [address] Unit #: [id number] Loc: [address] [place] [address] Phys: Cruz Murphy MD Acct: [id number] Dis Date: Status: ADM IN PHONE #: [phone] Exam Date: 06/10/2022 1130 FAX #: Reason: numbness EXAMS: CPT: [id number] MRI BRAIN W/O CONTRAST 31236 Location: B2 EXAM: MRI brain without contrast DATE:06/10/2022 4:05 PM INDICATION:numbness COMPARISON: CT head 06/07/2022. TECHNIQUE: Multiplanar multisequence images of the brain were obtained without contrast material administration. DISCUSSION: No acute parenchymal abnormality. No hydrocephalus or midline shift. No acute hemorrhage or restricted diffusion. Major intracranial flow voids are well maintained. Pineal region, pituitary gland, craniocervical junction, orbits and internal auditory canals are unremarkable. No osseous lesions. Paranasal sinuses are clear. IMPRESSION: Unremarkable MRI of the brain at 1159 Reported and signed by: Erika Mares M.D. CC: Cruz Murphy MD Technologist: RT Mickey(R)(MR) Transcribed Date/Time/By: 06/10/2022 (3108) :Collette Orig Print D/T: S: 06/10/2022 (2702) PAGE 1 Signed Report - CT HEAD/BRAIN 2022-06-07 W/O CONT 16:32:00 [facility] 2000 Sex: F Name: JOEL ZAMUDIO [facility] : 2000 Age/S: 21 / F [address] [address] Unit #: [id number] Loc: [place] [address] Phys: Cruz Murphy MD Acct: [id number] Dis Date: Status: ADM IN PHONE #: [phone] Exam Date: 06/07/2022 1621 FAX #: Reason: S/P FALL EXAMS: CPT: [id number] CT HEAD/BRAIN W/O CONT 60978 EXAM: - CT HEAD/BRAIN W/O CONT LOCATION: H101 CLINICAL HISTORY/INDICATION: S/P FALL TECHNIQUE: Helical CT acquisition of the head was obtained without IV contrast. Images were reconstructed in the axial, sagittal and coronal planes. This examination was performed according to our departmental dose optimization program, which includes automated exposure control, adjustment of the mA and/or kV according to patient size, and/or use of iterative reconstruction technique. COMPARISON: Head CT 06/05/2022. FINDINGS: VENTRICLES: Appropriate for age. No hydrocephalus. PARENCHYMA: No CT evidence of acute large territorial infarct, parenchymal hemorrhage or mass effect. EXTRA AXIAL SPACE: No subarachnoid hemorrhage, epidural hematoma or subdural hematoma. SCALP: Unremarkable. BONES: No skull fractures or aggressive calvarial lesions. PARTIALLY IMAGED FACE /PARANASAL SINUSES: Paranasal sinuses are clear. MASTOID AIR CELLS: No effusion. OTHER FINDINGS: No significant. IMPRESSION: 1. No CT evidence of acute intracranial process. at 1632 Reported and signed by: Kirsten Nogueira M.D. PAGE 1 Signed Report (CONTINUED) Name: JOEL ZAMUDIO : 2000 Age/S: 21 / F [address] Unit #: [id number] Loc: [place] [address] Phys: Cruz Murphy MD Acct: [id number] Dis Date: Status: ADM IN PHONE #: [phone] Exam Date: 06/07/2022 1628 FAX #: Reason: S/P FALL EXAMS: CPT: [id number] CT HEAD/BRAIN W/O CONT 10738 (Continued) CC: Cruz Murphy MD Technologist:Betty Garcia, RT(R) CTDI: DLP: Trnscb Date/Time: 06/07/2022 (1631) [email or web address] Orig Print D/T: S: 06/07/2022 (1634) PAGE 2 Signed Report CSF CELL CT/DIFF 2022-06-06 15:35:00 Test Item Value Reference Range Interpretation Comme nts CSF COLOR (test code = COLCSF) COLORLESS DESCRIP. COLORLESS CSF APPEARANCE (test code = APPCSF) CLEAR DESCRIP. CLEAR CSF TUBE # (test code = TUBECSF) #3 Tube# Tube Used CSF WBC (test code = WBCCSF) 6 #/mm3 0-5 H CSF RBC (test code = RBCCSF) 0 #/mm3 0-0 N CSF POLY (test code = POLYCSF) TEST NOT PERFORMED % 0-3 CSF LYMPHOCYTE (test code = LYMPHCSF) TEST NOT PERFORMED % 40-80 CSF MONOCYTE (test code = MONOCSF) TEST NOT PERFORMED % 16-56 CSF EOSINOPHIL (test code = EOSCSF) TEST NOT PERFORMED % 0-0 CSF [id number] 15:35:00 Test Item Value Reference Range Interpretation Comments CSF GLUCOSE (test code = GLUCSF) 50 MG/DL 40-75 N CSF TOTAL PROTEIN (test code = 24.3 MG/DL 15.0-45.0 N PROTCSF) - XR FLUOROSCOPY 0-60 [id number] 14:30:00 [facility] 2000 Sex: F Name: JOEL MARIE [facility] : 2000 Age/S: 21 / F [address] [address] Unit #: [id number] Loc: [place] [address] Phys: Jl Torres MD Acct: [id number] Dis Date: Status: ADM IN PHONE #: [phone] Exam Date: 06/06/2022 1300 FAX #: Reason: LUMBAR PUNCTURE EXAMS: CPT: [id number] XR FLUOROSCOPY 0-60 MIN 05625 Fluoro Time: 78.1 DAP (Gy m2): Air Kerma (mGy): Location Code: S17 EXAM: LUMBAR PUNCTURE CLINICAL INDICATION: Severe headache. Suspected pseudotumor cerebri. COMPARISON: CT head June 05, 2022. FINDINGS: After explaining risks and benefits of the procedure, (including, but not limitedto, bleeding, infection and headache), the patient was placed prone on the examination table and theskin over the lumbar spine was cleaned and prepped in sterile fashion. An appropriate area was marked at the L2-3 space using fluoroscopy. 1% lidocaine was used to obtain anesthesia. Following this a 22- gauge spinal needle was inserted into the lumbar thecal sac with return of clear cerebrospinal fluid. Approximately 10 cc of clear CSF was obtained, and sent to lab for further analysis. Following this the needle was removed. The patient appeared to tolerate the procedure well without immediate complication. The opening and closing pressures were measured with the patient in prone position. The opening pressure was 9 cm water and closing pressure was less than 5 cm of water. 78 seconds of fluoroscopy time was used to complete the procedure. Total dose: 44.94 mGy IMPRESSION: 1. Technically successful fluoroscopically guided lumbar puncture. No immediate complications. 2. Opening pressure 9. Closing pressure less than 5. at 1430 Reported and signed by: Oliver Alvarez M.D. CC: Jl Torres MD PAGE 1 Signed Report Name: JOEL ZAMUDIO [facility] : 2000 Age/S: 21 / F [address] [address] Unit #: [id number] Loc: [place], [place] [address]Uyxn: Jl Torres MD Acct: [id number] Dis Date: Status: ADM IN PHONE #: [phone] Exam Date:06/06/2022 1300 FAX #: Reason: LUMBAR PUNCTURE EXAMS: CPT: [id number] XR FLUOROSCOPY 0-60 MIN 76760 Fluoro Time: 78.1 DAP (Gy m2): Air Kerma (mGy): (Continued) Technologist: Elliott Rubio, RT,(R),(CT) Trnscb Date/Time: 06/06/2022 (1430) [email or web address] Orig Print D/T: S: 06/06/2022 (9604) PAGE 2 Signed Report PROTHROMBIN [id number] 05:36:00 Test Item Value Reference Range Interpretation Comments PT PATIENT (test 12.3 SECONDS 9.3-12.9 N code = PTP) INTERNATIONAL NORMAL 1.11 INR Unit 0.8-1.2 N TARGE T INR BY RATIO (test code = INDICATIO N Indication INR) INR1. Prophylax is of venous thrombos is 2.0 - 3.0 (orthoped ic surgery), Proph ylaxis of venous throm bosis (other than hig h-risk surgery), Treat ment of Deep Vein Thrombosis/Pulm onary Embolism, Preve ntion of systemic emb olism - Tissue heart va lves, Acute Myocardia l Infarction (to prevent systemic emboli sm), Valvular heart disease, Acute Myocardial Infa rction (to prevent sys temic embolism), Valv ular heart disease, Atrial Fibrillation, Bileaflet mecha nical valve in aortic position.2. Mec hanical prosthetic valv es (high risk), 2. 5 - 3.5 Presence of Lup us Anticoagulant o r Antiphospholipi d Antibodies, Pre vention of systemic emb olism - Acute Myocardia l Infarction (to prevent recurrent infar ct). [id number] 05:33:00 Test Item Value Reference Range Interpretation Comments MAGNESIUM (test code = MAG) 1.9 MG/DL 1.8-2.4 N T4 [id number] 05:33:00 Test Item Value Reference Range Interpretation Comments T4 FREE (test code = T4F) 1.15 NG/DL 0.89-1.76 N THYROID STIMULATING [id number] 05:33:00 Test Item Value Reference Range Interpretation Comments THYROID STIMULATING HORMONE 2.920 mcIU/ML 0.340-4.820 N (test code = TSH) COMPREHENSIVE METABOLIC [id number] 05:19:00 Test Item Value Reference Range Interpretation Comments SODIUM (test code 138 mmol/L 134-147 N = NA) POTASSIUM (test 3.3 mmol/L 3.4-5.0 L code = K) CHLORIDE (test 110 mmol/L 100-108 H code = CL) CARBON DIOXIDE 27 mmol/L 21-32 N (test code = CO2) ANION GAP (test 1.0 GAP calc 4.0-15.0 L code = GAP) GLUCOSE (test code 93 MG/DL 70-110 N = GLU) BLOOD UREA 13 MG/DL 7-18 N NITROGEN (test code = BUN) GLOMERULAR >=60 max >60 The Glomerular FILTRATION RATE estimate estGFR Filtratio n Rate is a (test code = GFR) calculated parameterbased on serum Creatinin e, patient age and sex. GFR valuesless than 60 mL/min/1.73 square meters are reymundo cative ofChronic Kidne y Disease. Values less than 15 mL/min/1.73squa re meters indicate Kidney failure. The calculation for GFR is based on the CK D-EPI (2020) calculat ion. This formulais race indifferent and is the recommended formula for GFR by the National Kidney Foundation for Adults.The GFR will not calculate i f the sex is unknown or if thepatient's ag e is <18 years. CREATININE (test 0.7 MG/DL 0.6-1.0 N code = CREAT) TOTAL PROTEIN 6.9 G/DL 6.4-8.2 N (test code = PROT) ALBUMIN (test code 3.2 G/DL 3.4-5.0 L = ALB) GLOBULIN (test 3.7 GM/dL code = GLOB) ALBUMIN/GLOBULIN 0.9 RATIO 1.2-2.2 L RATIO (test code = A/G) CALCIUM (test code 8.2 MG/DL 8.5-10.1 L = CA) BILIRUBIN TOTAL 0.50 MG/DL 0.2-1.2 N (test code = BILT) SGOT/AST (test 16 Unit/L 15-37 N code = AST) SGPT/ALT (test 23 Unit/L 12-78 N code = ALT) ALKALINE 64 Unit/L 45-117 N PHOSPHATASE TOTAL (test code = ALKP) CBC W/AUTO [id number] 05:15:00 Test Item Value Reference Range Interpretation Comments WHITE BLOOD CELL (test code = 8.3 K/mm3 3.5-11.0 N WBC) RED BLOOD CELL (test code = 4.26 M/mm3 4.70-6.10 L RBC) HEMOGLOBIN (test code = HGB) 12.8 G/DL 10.4-14.9 N HEMATOCRIT (test code = HCT) 39.1 % 31.5-44.1 N MEAN CELL VOLUME (test code = 91.8 Fl 84.5-98.6 N MCV) MEAN CELL HGB (test code = MCH) 30.0 pg 27.0-34.2 N MEAN CELL HGB CONCETRATION 32.7 G/DL 31.5-34.0 N (test code = MCHC) RED CELL DISTRIBUTION WIDTH 12.4 SD 11.5-14.5 N (test code = RDW) PLATELET COUNT (test code = 226 K/mm3 150-450 N PLT) MEAN PLATELET VOLUME (test code 10.80 fL 7.0-10.5 H = MPV) NEUTROPHIL % (test code = NT%) 57.7 % 24.0-85.0 N IMMATURE GRANULOCYTE % (test 0.2 % 0.0-5.0 N code = IG%) LYMPHOCYTE % (test code = LY%) 32.9 % 20.5-51.1 N MONOCYTE % (test code = MO%) 5.7 % 1.7-9.3 N EOSINOPHIL % (test code = EO%) 3.3 % 0.0-6.0 N BASOPHIL % (test code = BA%) 0.2 % 0.0-2.0 N NUCLEATED RBC % (test code = 0.0 /100WBC% 0.0-1.0 N NRBC%) NEUTROPHIL # (test code = NT#) 4.8 K/mm3 1.8-7.6 N IMMATURE GRANULOCYTE # (test 0.02 x10 3/uL 0.00-0.03 N code = IG#) LYMPHOCYTE # (test code = LY#) 2.7 K/mm3 0.6-3.2 N MONOCYTE # (test code = MO#) 0.5 K/mm3 0.3-1.1 N EOSINOPHIL # (test code = EO#) 0.3 K/mm3 0.0-0.4 N BASOPHIL # (test code = BA#) 0.0 K/mm3 0.0-0.1 N NUCLEATED RBC # (test code = 0.0 K/mm3 0.0-0.1 N NRBC#) MANUAL DIFF REQUIRED (test code NO DIFF/SCN CRITERIA = MDIFF) - CT HEAD/BRAIN W/O [id number] 23:08:00 [facility] 2000 Sex: F Name: JOEL MARIE [facility] : 2000 Age/S: 21 / F [address] [address] Unit #: [id number] Loc:[place] [address] Phys: Bebe Hebert DO Acct: [id number] Dis Date: Status: REG ER PHONE #: [phone] Exam Date: 06/05/2022 4551 FAX #: Reason: headache EXAMS: CPT: [id number] CT HEAD/BRAIN W/O CONT 87391 EXAM: - CT HEAD/BRAIN W/O CONT HISTORY: headache . TECHNIQUE: CT of the brain without contrast: Transaxial images were performed through the brain without intravenous contrast. A CT dosimetry report is saved to PACS. CT scan performed using appropriate/available dose optimization/reductiontechniques. COMPARISON: None. FINDINGS: Posterior fossa: Normal. Supratentorial: No acute infarct, hemorrhage, edema, masses or midline shift seen. The ventricles are not enlarged. Other: None. IMPRESSION: No acute intracranial abnormality. Dictation/location code: H-94 at 2308 Reported and signed by: YUDITH LONGORIA M.D. CC: Bebe Hebert DO Technologist:Morro Castellanos, RT(R)(CT) CTDI: DLP: Trnscb Date/Time: 06/05/2022 (2307) [email or web address] Orig Print D/T: S: 06/05/2022 (0609) PAGE 1 Signed ReportCOVID 19 INHOUSE [id number] 21:35:00 Test Item Value Reference Range Interpretation Comments COVID 19 INHOUSE AG NEGATIVE Negative Per manu facturer, (test code = negative result s should [id number]) be treated aspr esumptive and, if inconsi stent with clinical signs andsymptoms or necessary for patient man agement, should betested with an alternative mol ecular assay. Negative resultsdo not preclude SA RS-CoV-2 infection and s hould not be usedas the s ole basis for patient man agement decisions. Nega tive results should be considered in t he context of apatient's r ecent exposures, hist ory, presence of cli nicalsigns and symptoms co nsistent with COVID-19. UR HCG [id number] 21:22:00 Test Item Value Reference Range Interpretation Comments UR HCG QUAL (test code = HCGQLU) NEGATIVE NEGATIVE - XR CHEST 2 [id number] 21:00:00 [facility] 2000 Sex: F Name:JOEL ZAMUDIO [facility] : 2000 Age/S: 21 / F [address] [address] Unit #: [id number] Loc:[place] [address] Phys: Bebe Hebert DO Acct: [id number] Dis Date: Status: REG ER PHONE #: [phone] Exam Date: 06/05/20222052 FAX #: Reason: cough EXAMS: CPT: [id number] XR CHEST 2 V [id number] Time: DAP (Gy m2): Air Kerma (mGy): EXAMINATION: - XR CHEST 2 V CLINICAL INDICATION: Female, 21 years year old with cough COMPARISON: None. FINDINGS: 2 view(s) of the chest submitted. Support Devices: None. Heart: Cardiac silhouette is normal in size. Mediastinum: Mediastinal contours are normal. Lungs: Pulmonary vessels are normal in size. Lungs are well aerated and clear. Pleura: No pleuraleffusion is identified. No pneumothorax is present. Bones: Visualized skeleton is normal. IMPRESSION: No acute cardiopulmonary disease. at 2100 Reported and signed by: Romero Natarajan M.D. CC: Bebe Hebert DO PAGE 1 Signed Report Name: JOEL ZAMUDIO [facility] : 2000 Age/S: 21 / F [address] [address] Unit #: [id number] Loc: [place] [address] Phys: Bebe Hebert DO Acct: [id number] Dis Date: Status: REG ER PHONE #: [phone] Exam Date: 06/05/20222052 FAX #: Reason: cough EXAMS: CPT: [id number] XR CHEST2 V 93400 Fluoro Time: DAP (Gy m2): Air Kerma (mGy): (Continued) Technologist: Kaila Guillen RT(R)(CT) Trnscb Date/Time: 06/05/2022 (2099) [id number] Orig Print D/T: S: 06/05/2022 (2102) PAGE 2 Signed ReportHCG qualitative,[id number] 11:14:00 Test Item Value Reference Range Interpretation Comments HCG qualitative,serum (test code = negative neg HCG qualitative,serum) [facility] - [facility] or Plasma 2022-04-10 11:09:00 Test Item Value Reference Range Interpretation Comments glucose (test code = glucose) 98 mg/dL 74-106 blood urea nitrogen (test code = 14 mg/dL 6-20 blood urea nitrogen) osmolality calculated,serum (test 276 mOsm/kg 280-300 L code = osmolality calculated,serum) creatinine (test code = 0.67 mg/dL 0.50-0.90 creatinine) glomerular filtration rate (test > 60.00 code = glomerular filtration rate) BUN/creatinine ratio (test code = 20.9 12.0-20.0 H BUN/creatinine ratio) sodium level (test code = sodium 138 mmol/L 135-145 level) potassium level (test code = 4.3 mmol/L 3.5-5.2 potassium level) chloride level (test code = 102 mmol/L 98-108 chloride level) CO2 (test code = CO2) 23 mmol/L 21-32 anion gap (test code = anion gap) 17.3 mEq/L 12.0-20.0 calcium level (test code = 9.4 mg/dL 8.6-10.0 calcium level) total protein (test code = total 8.3 g/dL 6.6-8.7 protein) albumin (test code = albumin) 4.3 g/dL 3.5-5.2 globulin (test code = globulin) 4.0 g/dL 1.5-4.5 A/G ratio (test code = A/G ratio) 1.1 >1.0 bilirubin,total (test code = 0.3 mg/dL 0.0-1.2 bilirubin,total) AST/SGOT (test code = AST/SGOT) 24 U/L 15-32 ALT/SGPT (test code = ALT/SGPT) 30 U/L 0-33 alkaline phosphatase, total (test 86 U/L 35-105 code = alkaline phosphatase, total) [facility] W Auto Differential panel - [id number] 10:52:00 Test Item Value Reference Range Interpretation Comments white blood count (test code = 8.1 K/uL 4.0-11.5 white blood count) red blood count (test code = red 4.70 M/uL 3.80-5.20 blood count) hemoglobin (test code = 13.8 g/dL 10.5-15.7 hemoglobin) hematocrit (test code = 42.1 % 34.0-50.0 hematocrit) mean corpuscular volume (test code 89.6 fL 86.0-100.0 = mean corpuscular volume) mean corpuscular hemoglobin (test 29.4 pg 26.2-33.4 code = mean corpuscular hemoglobin) mean corpuscular HGB conc (test 32.8 g/dL 30.0-34.0 code = mean corpuscular HGB conc) red cell distribution width (test 12.4 % 12.0-15.5 code = red cell distribution width) platelet count (test code = 291 K/uL 165-450 platelet count) mean platelet volume (test code = 10.4 fL 9.4-12.6 mean platelet volume) neutrophils % (test code = 70.5 % 44.4-80.1 neutrophils %) Ig% (test code = Ig%) 0.4 % 0.0-0.4 lymphocyte% (test code = 21.2 % 10.0-50.0 lymphocyte%) mono % (test code = mono %) 4.3 % 3.6-12.0 eos % (test code = eos %) 3.2 % 0.0-5.4 basophil % (test code = basophil 0.4 % 0.1-1.2 %) absolute neutrophil count (test 5.73 K/uL 1.56-6.13 code = absolute neutrophil count) Ig# (test code = Ig#) 0.03 K/uL 0.00-0.03 lymph # (test code = lymph #) 1.72 K/uL 1.18-3.74 mono # (test code = mono #) 0.35 K/uL 0.24-0.86 eos # (test code = eos #) 0.26 K/uL 0.04-0.36 basophil # (test code = basophil 0.03 K/uL 0.01-0.08 #) NRBC% (test code = NRBC%) 0 /100 WBC 0-0.2 NRBC# (test code = NRBC#) 0 K/uL [facility]2022-03-18 17:13:00 Test Item Value Reference Range Interpretation Comments pathology S# (test code see emr pathology = pathology S#) report. [facility] qualitative,[id number] 13:38:00 Test Item Value Reference Range Interpretation Comments HCG qualitative,serum (test code = negative neg HCG qualitative,serum) [facility] - Serum or Plasma 2022-03-11 12:48:00 Test Item Value Reference Range Interpretation Comments glucose (test code = glucose) 93 mg/dL 74-106 blood urea nitrogen (test code = 13 mg/dL 6-20 blood urea nitrogen) osmolality calculated,serum (test 277 mOsm/kg 280-300 L code = osmolality calculated,serum) creatinine (test code = 0.55 mg/dL 0.50-0.90 creatinine) glomerular filtration rate (test > 60.00 code = glomerular filtration rate) BUN/creatinine ratio (test code = 23.6 12.0-20.0 H BUN/creatinine ratio) sodium level (test code = sodium 139 mmol/L 135-145 level) potassium level (test code = 4.5 mmol/L 3.5-5.2 potassium level) chloride level (test code = 105 mmol/L 98-108 chloride level) CO2 (test code = CO2) 24 mmol/L 21-32 anion gap (test code = anion gap) 14.5 mEq/L 12.0-20.0 calcium level (test code = 9.4 mg/dL 8.6-10.0 calcium level) total protein (test code = total 7.8 g/dL 6.6-8.7 protein) albumin (test code = albumin) 4.1 g/dL 3.5-5.2 globulin (test code = globulin) 3.7 g/dL 1.5-4.5 A/G ratio (test code = A/G ratio) 1.1 >1.0 bilirubin,total (test code = 0.3 mg/dL 0.0-1.2 bilirubin,total) AST/SGOT (test code = AST/SGOT) 17 U/L 15-32 ALT/SGPT (test code = ALT/SGPT) 19 U/L 0-33 alkaline phosphatase, total (test 73 U/L 35-105 code = alkaline phosphatase, total) [facility] W Auto Differential panel - [id number] 12:07:00 Test Item Value Reference Range Interpretation Comments white blood count (test code = 8.5 K/uL 4.0-11.5 white blood count) red blood count (test code = red 4.63 M/uL 3.80-5.20 blood count) hemoglobin (test code = 13.5 g/dL 10.5-15.7 hemoglobin) hematocrit (test code = 41.4 % 34.0-50.0 hematocrit) mean corpuscular volume (test code 89.4 fL 86.0-100.0 = mean corpuscular volume) mean corpuscular hemoglobin (test 29.2 pg 26.2-33.4 code = mean corpuscular hemoglobin) mean corpuscular HGB conc (test 32.6 g/dL 30.0-34.0 code = mean corpuscular HGB conc) red cell distribution width (test 12.3 % 12.0-15.5 code = red cell distribution width) platelet count (test code = 266 K/uL 165-450 platelet count) mean platelet volume (test code = 10.5 fL 9.4-12.6 mean platelet volume) neutrophils % (test code = 69.7 % 44.4-80.1 neutrophils %) Ig% (test code = Ig%) 0.1 % 0.0-0.4 lymphocyte% (test code = 22.1 % 10.0-50.0 lymphocyte%) mono % (test code = mono %) 4.8 % 3.6-12.0 eos % (test code = eos %) 2.9 % 0.0-5.4 basophil % (test code = basophil 0.4 % 0.1-1.2 %) absolute neutrophil count (test 5.95 K/uL 1.56-6.13 code = absolute neutrophil count) Ig# (test code = Ig#) 0.01 K/uL 0.00-0.03 lymph # (test code = lymph #) 1.89 K/uL 1.18-3.74 mono # (test code = mono #) 0.41 K/uL 0.24-0.86 eos # (test code = eos #) 0.25 K/uL 0.04-0.36 basophil # (test code = basophil 0.03 K/uL 0.01-0.08 #) NRBC% (test code = NRBC%) 0 /100 WBC 0-0.2 NRBC# (test code = NRBC#) 0 K/uL [facility] B12 folate [id number] 16:16:00 Test Item Value Reference Range Interpretation Comments vitamin B12 (test code = vitamin 301.2 pg/mL 211-946 B12) folate (test code = folate) 16.59 NG/mL 4.78-24.2 [facility] B12 folate [id number] 16:16:00 Test Item Value Reference Range Interpretation Comments vitamin B12 (test code = vitamin 301.2 pg/mL 211-946 B12) folate (test code = folate) 16.59 NG/mL 4.78-24.2 [facility] hormone [id number] 16:01:00 Test Item Value Reference Range Interpretation Comments thyroid stimulating hormone L 1.71 uIU/mL 0.36-3.74 (test code = thyroid stimulating hormone L) [facility]/TIBC [id number] 16:00:00 Test Item Value Reference Range Interpretation Comments iron (fe) (test code = iron (fe)) 95 ug/dL 37-145 total iron binding capacity (test 315 ug/dL 260-445 code = total iron binding capacity) % saturation (test code = % 30 % 12-45 saturation) [facility]/TIBC [id number] 16:00:00 Test Item Value Reference Range Interpretation Comments iron (fe) (test code = iron (fe)) 95 ug/dL 37-145 total iron binding capacity (test 315 ug/dL 260-445 code = total iron binding capacity) % saturation (test code = % 30 % 12-45 saturation) [facility] [id number] 16:00:00 Test Item Value Reference Range Interpretation Comments iron (fe) (test code = iron (fe)) 95 ug/dL 37-145 total iron binding capacity (test 315 ug/dL 260-445 code = total iron binding capacity) % saturation (test code = % 30 % 12-45 saturation) [facility] 2000 [facility] - Serum or Plasma 2022-01-28 15:58:00 Test Item Value Reference Range Interpretation Comments glucose (test code = glucose) 109 mg/dL 74-106 H blood urea nitrogen (test code = 11 mg/dL 6-20 blood urea nitrogen) osmolality calculated,serum (test 274 mOsm/kg 280-300 L code = osmolality calculated,serum) creatinine (test code = 0.74 mg/dL 0.50-0.90 creatinine) glomerular filtration rate (test > 60.00 code = glomerular filtration rate) BUN/creatinine ratio (test code = 14.9 12.0-20.0 BUN/creatinine ratio) sodium level (test code = sodium 137 mmol/L 135-145 level) potassium level (test code = 3.7 mmol/L 3.5-5.2 potassium level) chloride level (test code = 101 mmol/L 98-108 chloride level) CO2 (test code = CO2) 26 mmol/L 21-32 anion gap (test code = anion gap) 13.7 mEq/L 12.0-20.0 calcium level (test code = 9.0 mg/dL 8.6-10.0 calcium level) total protein (test code = total 8.0 g/dL 6.6-8.7 protein) albumin (test code = albumin) 4.2 g/dL 3.5-5.2 globulin (test code = globulin) 3.8 g/dL 1.5-4.5 A/G ratio (test code = A/G ratio) 1.1 >1.0 bilirubin,total (test code = 0.3 mg/dL 0.0-1.2 bilirubin,total) AST/SGOT (test code = AST/SGOT) 19 U/L 15-32 ALT/SGPT (test code = ALT/SGPT) 28 U/L 0-33 alkaline phosphatase, total (test 86 U/L 35-105 code = alkaline phosphatase, total) [facility]all[facility]id [id number] 15:58:00 Test Item Value Reference Range Interpretation Comments cholesterol level (test code = 163 mg/dL 150-200 cholesterol level) triglycerides level (test code = 222 mg/dL <150 H triglycerides level) HDL cholesterol (test code = HDL 55 mg/dL >65 L cholesterol) Cholesterol in LDL [Mass/volume] in 80 mg/dL <100 Serum or Plasma (test code = 2089-1) cholesterol risk ratio (test code = 2.963 cholesterol risk ratio) [facility] Hospitalferritin2022-[facility]-13 15:58:00 Test Item Value Reference Range Interpretation Comments ferritin (test code = ferritin) 42.4 NG/mL 13-150 [facility] [id number] 15:58:00 Test Item Value Reference Range Interpretation Comments cholesterol level (test code = 163 mg/dL 150-200 cholesterol level) triglycerides level (test code = 222 mg/dL <150 H triglycerides level) HDL cholesterol (test code = HDL 55 mg/dL >65 L cholesterol) Cholesterol in LDL [Mass/volume] in 80 mg/dL <100 Serum or Plasma (test code = 2089-1) cholesterol risk ratio (test code = 2.963 cholesterol risk ratio) [facility]in20[facility] 15:58:00 Test Item Value Reference Range Interpretation Comments ferritin (test code = ferritin) 42.4 NG/mL 13-150 [facility]hemoglobin [id number] 15:51:00 Test Item Value Reference Range Interpretation Comments Hemoglobin A1c/Hemoglobin.total in 4.7 % 4.0-6.0 Blood (test code = 4548-4) [facility] Auto Differential panel - [id number] 15:39:00 Test Item Value Reference Range Interpretation Comments white blood count (test code = 8.7 K/uL 4.0-11.5 white blood count) red blood count (test code = red 4.69 M/uL 3.80-5.20 blood count) hemoglobin (test code = 13.4 g/dL 10.5-15.7 hemoglobin) hematocrit (test code = 41.8 % 34.0-50.0 hematocrit) mean corpuscular volume (test code 89.1 fL 86.0-100.0 = mean corpuscular volume) mean corpuscular hemoglobin (test 28.6 pg 26.2-33.4 code = mean corpuscular hemoglobin) mean corpuscular HGB conc (test 32.1 g/dL 30.0-34.0 code = mean corpuscular HGB conc) red cell distribution width (test 12.8 % 12.0-15.5 code = red cell distribution width) platelet count (test code = 313 K/uL 165-450 platelet count) mean platelet volume (test code = 10.9 fL 9.4-12.6 mean platelet volume) neutrophils % (test code = 69.8 % 44.4-80.1 neutrophils %) Ig% (test code = Ig%) 0.5 % 0.0-0.4 H lymphocyte% (test code = 20.8 % 10.0-50.0 lymphocyte%) mono % (test code = mono %) 4.8 % 3.6-12.0 eos % (test code = eos %) 3.6 % 0.0-5.4 basophil % (test code = basophil 0.5 % 0.1-1.2 %) absolute neutrophil count (test 6.10 K/uL 1.56-6.13 code = absolute neutrophil count) Ig# (test code = Ig#) 0.04 K/uL 0.00-0.03 H lymph # (test code = lymph #) 1.82 K/uL 1.18-3.74 mono # (test code = mono #) 0.42 K/uL 0.24-0.86 eos # (test code = eos #) 0.31 K/uL 0.04-0.36 basophil # (test code = basophil 0.04 K/uL 0.01-0.08 #) NRBC% (test code = NRBC%) 0 /100 WBC 0-0.2 NRBC# (test code = NRBC#) 0 K/uL [facility] Hospitalreticulocyte [id number] 15:39:00 Test Item Value Reference Range Interpretation Comments reticulocyte % (test code = 2.29 % 0.50-1.70 H reticulocyte %) reticulocyte # (test code = 0.107 M/uL 0.016-0.078 H reticulocyte #) irf (test code = irf) 10.4 % 3.0-15.9 retic-HGB equiv (test code = 33.0 pg 29-35 retic-HGB equiv) [facility] HospitalPrealbumin [Mass/volume] in Serum or [id number] 00:00:00 Test Item Value Reference Range Interpretation Comments pre-albumin (test code = 24.0 mg/dL 20-40 pre-albumin) [facility]CT + [facility] + TV, DNA, urine/[id number] 00:00:00 Test Item Value Reference Range Interpretation Comments marce - swab (test code = marce normal - swab) gardnerella (test code = abnormal A gardnerella) CT/NG (test code = CT/NG) normal trichomonas vaginalis addon - swab normal (test code = trichomonas vaginalis addon - swab) [facility] HospitalUrinalysis macro (dipstick) panel - [id number] 12:13:02 Test Item Value Reference Range Interpretation Comments Leukocytes (test code = Leukocytes) Negative Nitrite (test code = Nitrite) negative Urobilinogen (test code = .2 Urobilinogen) Protein (test code = Protein) Negative pH (test code = pH) 6.5 Blood (test code = Blood) Moderate Specific Fowler (test code = 1.025 Specific Fowler) Ketone (test code = Ketone) Negative Bilirubin (test code = Bilirubin) Negative Glucose (test code = Glucose) Negative Appearance (test code = Appearance) Clear Color (test code = Color) Yellow [facility] HospitalUrinalysis macro (dipstick) panel - [id number] 12:13:02 Test Item Value Reference Range Interpretation Comments Leukocytes (test code = Leukocytes) Negative Nitrite (test code = Nitrite) negative Urobilinogen (test code = .2 Urobilinogen) Protein (test code = Protein) Negative pH (test code = pH) 6.5 Blood (test code = Blood) Moderate Specific Fowler (test code = 1.025 Specific Fowler) Ketone (test code = Ketone) Negative Bilirubin (test code = Bilirubin) Negative Glucose (test code = Glucose) Negative Appearance (test code = Appearance) Clear Color (test code = Color) Yellow [facility] Hospitalpregnancy test, [id number] 14:46:00 Test Item Value Reference Range Interpretation Comments Test (test code = negative Test) [facility], [id number] 14:46:00 Test Item Value Reference Range Interpretation Comments Test (test code = negative Test) [facility] [id number] 00:00:00 Test Item Value Reference Range Interpretation Comments marce - swab (test code = marce - normal swab) gardnerella (test code = gardnerella) normal CT/NG (test code = CT/NG) normal trichomonas vaginalis addon - swab normal (test code = trichomonas vaginalis addon - swab) [facility] [id number] 00:00:00 Test Item Value Reference Range Interpretation Comments marce - swab (test code = marce - normal swab) gardnerella (test code = gardnerella) normal CT/NG (test code = CT/NG) normal trichomonas vaginalis addon - swab normal (test code = trichomonas vaginalis addon - swab) [facility] [id number] 11:26:00 Test Item Value Reference Range Interpretation Comments HCG quantitative (test code = HCG < 0.1 0-5 quantitative) [facility] [id number] 11:26:00 Test Item Value Reference Range Interpretation Comments HCG quantitative (test code = HCG < 0.1 0-5 quantitative) [facility] [id number] 11:26:00 Test Item Value Reference Range Interpretation Comments HCG quantitative (test code = HCG < 0.1 0-5 quantitative) [facility] W Auto Differential panel - [id number] 07:58:00 Test Item Value Reference Range Interpretation Comments white blood count (test code = 12.3 K/uL 4.0-11.5 H white blood count) red blood count (test code = red 3.24 M/uL 3.80-5.20 L blood count) hemoglobin (test code = 10.2 g/dL 10.5-15.7 hemoglobin) hematocrit (test code = 30.5 % 34.0-50.0 hematocrit) MCV [Entitic volume] (test code = 94.1 fL 86.0-100.0 27192-9) mean corpuscular hemoglobin (test 31.5 pg 26.2-33.4 code = mean corpuscular hemoglobin) mean corpuscular HGB conc (test 33.4 g/dL 30.0-34.0 code = mean corpuscular HGB conc) red cell distribution width (test 13.1 % 12.0-15.5 code = red cell distribution width) platelet count (test code = 141 K/uL 165-450 platelet count) mean platelet volume (test code = 11.5 fL 9.4-12.6 mean platelet volume) Segmented neutrophils/100 78.1 % 44.4-80.1 leukocytes in Blood (test code = 50371-3) Immature granulocytes [#/volume] 0.11 K/uL 0.00-0.03 H in Blood (test code = 28238-7) lymphocyte% (test code = 14.0 % 10.0-50.0 lymphocyte%) mono % (test code = mono %) 5.8 % 3.6-12.0 eos % (test code = eos %) 1.0 % 0.0-5.4 Basophils/100 leukocytes in 0.2 % 0.1-1.2 Specimen (test code = 90035-6) Band form neutrophils [#/volume] 9.60 K/uL 1.56-6.13 H in Blood (test code = 77786-8) Lymphocytes [#/volume] in Specimen 1.72 K/uL 1.18-3.74 by Automated count (test code = 94635-8) mono # (test code = mono #) 0.71 K/uL 0.24-0.86 eos # (test code = eos #) 0.12 K/uL 0.04-0.36 basophil # (test code = basophil 0.03 K/uL 0.01-0.08 #) NRBC% (test code = NRBC%) 0 /100 WBC 0-0.2 NRBC# (test code = NRBC#) 0 K/uL [facility] W Auto Differential panel - [id number] 07:58:00 Test Item Value Reference Range Interpretation Comments white blood count (test code = 12.3 K/uL 4.0-11.5 H white blood count) red blood count (test code = red 3.24 M/uL 3.80-5.20 L blood count) hemoglobin (test code = 10.2 g/dL 10.5-15.7 hemoglobin) hematocrit (test code = 30.5 % 34.0-50.0 hematocrit) MCV [Entitic volume] (test code = 94.1 fL 86.0-100.0 56126-0) mean corpuscular hemoglobin (test 31.5 pg 26.2-33.4 code = mean corpuscular hemoglobin) mean corpuscular HGB conc (test 33.4 g/dL 30.0-34.0 code = mean corpuscular HGB conc) red cell distribution width (test 13.1 % 12.0-15.5 code = red cell distribution width) platelet count (test code = 141 K/uL 165-450 platelet count) mean platelet volume (test code = 11.5 fL 9.4-12.6 mean platelet volume) Segmented neutrophils/100 78.1 % 44.4-80.1 leukocytes in Blood (test code = 85760-3) Immature granulocytes [#/volume] 0.11 K/uL 0.00-0.03 H in Blood (test code = 05206-5) lymphocyte% (test code = 14.0 % 10.0-50.0 lymphocyte%) mono % (test code = mono %) 5.8 % 3.6-12.0 eos % (test code = eos %) 1.0 % 0.0-5.4 Basophils/100 leukocytes in 0.2 % 0.1-1.2 Specimen (test code = 26232-4) Band form neutrophils [#/volume] 9.60 K/uL 1.56-6.13 H in Blood (test code = 42519-3) Lymphocytes [#/volume] in Specimen 1.72 K/uL 1.18-3.74 by Automated count (test code = 85627-2) mono # (test code = mono #) 0.71 K/uL 0.24-0.86 eos # (test code = eos #) 0.12 K/uL 0.04-0.36 basophil # (test code = basophil 0.03 K/uL 0.01-0.08 #) NRBC% (test code = NRBC%) 0 /100 WBC 0-0.2 NRBC# (test code = NRBC#) 0 K/uL [facility] W Auto Differential panel - [id number] 07:58:00 Test Item Value Reference Range Interpretation Comments white blood count (test code = 12.3 K/uL 4.0-11.5 H white blood count) red blood count (test code = red 3.24 M/uL 3.80-5.20 L blood count) hemoglobin (test code = 10.2 g/dL 10.5-15.7 hemoglobin) hematocrit (test code = 30.5 % 34.0-50.0 hematocrit) MCV [Entitic volume] (test code = 94.1 fL 86.0-100.0 43996-5) mean corpuscular hemoglobin (test 31.5 pg 26.2-33.4 code = mean corpuscular hemoglobin) mean corpuscular HGB conc (test 33.4 g/dL 30.0-34.0 code = mean corpuscular HGB conc) red cell distribution width (test 13.1 % 12.0-15.5 code = red cell distribution width) platelet count (test code = 141 K/uL 165-450 platelet count) mean platelet volume (test code = 11.5 fL 9.4-12.6 mean platelet volume) Segmented neutrophils/100 78.1 % 44.4-80.1 leukocytes in Blood (test code = 76764-3) Immature granulocytes [#/volume] 0.11 K/uL 0.00-0.03 H in Blood (test code = 72483-0) lymphocyte% (test code = 14.0 % 10.0-50.0 lymphocyte%) mono % (test code = mono %) 5.8 % 3.6-12.0 eos % (test code = eos %) 1.0 % 0.0-5.4 Basophils/100 leukocytes in 0.2 % 0.1-1.2 Specimen (test code = 49684-0) Band form neutrophils [#/volume] 9.60 K/uL 1.56-6.13 H in Blood (test code = 86491-3) Lymphocytes [#/volume] in Specimen 1.72 K/uL 1.18-3.74 by Automated count (test code = 86014-2) mono # (test code = mono #) 0.71 K/uL 0.24-0.86 eos # (test code = eos #) 0.12 K/uL 0.04-0.36 basophil # (test code = basophil 0.03 K/uL 0.01-0.08 #) NRBC% (test code = NRBC%) 0 /100 WBC 0-0.2 NRBC# (test code = NRBC#) 0 K/uL [facility] W Auto Differential panel - [id number] 07:58:00 Test Item Value Reference Range Interpretation Comments white blood count (test code = 12.3 K/uL 4.0-11.5 H white blood count) red blood count (test code = red 3.24 M/uL 3.80-5.20 L blood count) hemoglobin (test code = 10.2 g/dL 10.5-15.7 hemoglobin) hematocrit (test code = 30.5 % 34.0-50.0 hematocrit) MCV [Entitic volume] (test code = 94.1 fL 86.0-100.0 98149-8) mean corpuscular hemoglobin (test 31.5 pg 26.2-33.4 code = mean corpuscular hemoglobin) mean corpuscular HGB conc (test 33.4 g/dL 30.0-34.0 code = mean corpuscular HGB conc) red cell distribution width (test 13.1 % 12.0-15.5 code = red cell distribution width) platelet count (test code = 141 K/uL 165-450 platelet count) mean platelet volume (test code = 11.5 fL 9.4-12.6 mean platelet volume) Segmented neutrophils/100 78.1 % 44.4-80.1 leukocytes in Blood (test code = 94089-2) Immature granulocytes [#/volume] 0.11 K/uL 0.00-0.03 H in Blood (test code = 68872-2) lymphocyte% (test code = 14.0 % 10.0-50.0 lymphocyte%) mono % (test code = mono %) 5.8 % 3.6-12.0 eos % (test code = eos %) 1.0 % 0.0-5.4 Basophils/100 leukocytes in 0.2 % 0.1-1.2 Specimen (test code = 72304-2) Band form neutrophils [#/volume] 9.60 K/uL 1.56-6.13 H in Blood (test code = 83241-3) Lymphocytes [#/volume] in Specimen 1.72 K/uL 1.18-3.74 by Automated count (test code = 36295-5) mono # (test code = mono #) 0.71 K/uL 0.24-0.86 eos # (test code = eos #) 0.12 K/uL 0.04-0.36 basophil # (test code = basophil 0.03 K/uL 0.01-0.08 #) NRBC% (test code = NRBC%) 0 /100 WBC 0-0.2 NRBC# (test code = NRBC#) 0 K/uL [facility] GroupDifferential panel, method unspecified - [id number] 00:00:00NeutrophilsBandLymphocyteAtypical LymphMonocyteEosinophilBasophilMetamyelocyteMyelocytePromyelocyteBlastsNucleated Red Blood CellAbs Neutrophil Count (Man)Abs Lymph Count (Man)Abs Monocyte Count (Man)Abs Eosinophil Count (Man)Abs Basophil Count (Man)Platelet EstimatePlatelet MorphologyPoikilocytosisAnisocytosisT[facility] Differential panel, method unspecified - [id number] 00:00:00 NeutrophilsBandLymphocyteAtypical LymphMonocyteEosinophilBasophilMetamyelocyteMyelocytePromyelocyteBlastsNucleated Red Blood CellAbs Neutrophil Count (Man)Abs Lymph Count (Man)Abs Monocyte Count (Man)Abs Eosinophil Count (Man)Abs Basophil Count (Man)Platelet EstimatePlatelet MorphologyPoikilocytosisAnicytosisT[facility] Differential panel, method unspecified - [id number] 00:00:00 NeutrophilsBandLymphocyteAtypical LymphMonocyteEosinophilBasophilMetamyelocyteMyelocytePromyelocyteBlastsNucleated Red Blood CellAbs Neutrophil Count (Man)Abs Lymph Count (Man)Abs Monocyte Count (Man)Abs Eosinophil Count (Man)Abs Basophil Count (Man)Platelet EstimatePlatelet MorphologyPoikilocytosisAnisocytosisT[facility] Hospital Differential panel, method unspecified - [id number] 00:00:00 NeutrophilsBandLymphocyteAtypical LymphMonocyteEosinophilBasophilMetamyelocyteMyelocytePromyelocyteBlastsNucleated Red Blood CellAbs Neutrophil Count (Man)Abs Lymph Count (Man)Abs Monocyte Count (Man)Abs Eosinophil Count (Man)Abs Basophil Count (Man)Platelet EstimatePlatelet MorphologyPoikilocytosisAnisocytosisTallahatchie [facility] HospitalCB W Auto Differential panel - [id number] 04:40:00 Test Item Value Reference Range Interpretation Comments white blood count (test code = 10.3 K/uL 4.0-11.5 white blood count) red blood count (test code = red 4.30 M/uL 3.80-5.20 blood count) hemoglobin (test code = 13.3 g/dL 10.5-15.7 hemoglobin) hematocrit (test code = 38.5 % 34.0-50.0 hematocrit) MCV [Entitic volume] (test code = 89.5 fL 86.0-100.0 20254-6) mean corpuscular hemoglobin (test 30.9 pg 26.2-33.4 code = mean corpuscular hemoglobin) mean corpuscular HGB conc (test 34.5 g/dL 30.0-34.0 H code = mean corpuscular HGB conc) red cell distribution width (test 12.9 % 12.0-15.5 code = red cell distribution width) platelet count (test code = 205 K/uL 165-450 platelet count) mean platelet volume (test code = 11.8 fL 9.4-12.6 mean platelet volume) Segmented neutrophils/100 75.7 % 44.4-80.1 leukocytes in Blood (test code = 82947-6) Immature granulocytes [#/volume] 0.08 K/uL 0.00-0.03 H in Blood (test code = 71064-0) lymphocyte% (test code = 15.5 % 10.0-50.0 lymphocyte%) mono % (test code = mono %) 6.6 % 3.6-12.0 eos % (test code = eos %) 1.2 % 0.0-5.4 Basophils/100 leukocytes in 0.2 % 0.1-1.2 Specimen (test code = 54437-1) Band form neutrophils [#/volume] 7.81 K/uL 1.56-6.13 H in Blood (test code = 46888-6) Lymphocytes [#/volume] in Specimen 1.60 K/uL 1.18-3.74 by Automated count (test code = 03354-4) mono # (test code = mono #) 0.68 K/uL 0.24-0.86 eos # (test code = eos #) 0.12 K/uL 0.04-0.36 basophil # (test code = basophil 0.02 K/uL 0.01-0.08 #) NRBC% (test code = NRBC%) 0 /100 WBC 0-0.2 NRBC# (test code = NRBC#) 0 K/uL [facility] type and Indirect antibody screen panel - Blood 2021-04-18 04:40:00 Test Item Value Reference Range Interpretation Comments Rh [Type] in Blood (test code = 4+ 73345-1) ABO and Rh group panel - Blood O positive (test code = 41054-4) [facility] Auto Differential panel - [id number] 04:40:00 Test Item Value Reference Range Interpretation Comments white blood count (test code = 10.3 K/uL 4.0-11.5 white blood count) red blood count (test code = red 4.30 M/uL 3.80-5.20 blood count) hemoglobin (test code = 13.3 g/dL 10.5-15.7 hemoglobin) hematocrit (test code = 38.5 % 34.0-50.0 hematocrit) MCV [Entitic volume] (test code = 89.5 fL 86.0-100.0 35338-2) mean corpuscular hemoglobin (test 30.9 pg 26.2-33.4 code = mean corpuscular hemoglobin) mean corpuscular HGB conc (test 34.5 g/dL 30.0-34.0 H code = mean corpuscular HGB conc) red cell distribution width (test 12.9 % 12.0-15.5 code = red cell distribution width) platelet count (test code = 205 K/uL 165-450 platelet count) mean platelet volume (test code = 11.8 fL 9.4-12.6 mean platelet volume) Segmented neutrophils/100 75.7 % 44.4-80.1 leukocytes in Blood (test code = 98515-6) Immature granulocytes [#/volume] 0.08 K/uL 0.00-0.03 H in Blood (test code = 17624-0) lymphocyte% (test code = 15.5 % 10.0-50.0 lymphocyte%) mono % (test code = mono %) 6.6 % 3.6-12.0 eos % (test code = eos %) 1.2 % 0.0-5.4 Basophils/100 leukocytes in 0.2 % 0.1-1.2 Specimen (test code = 76571-8) Band form neutrophils [#/volume] 7.81 K/uL 1.56-6.13 H in Blood (test code = 23436-8) Lymphocytes [#/volume] in Specimen 1.60 K/uL 1.18-3.74 by Automated count (test code = 69802-2) mono # (test code = mono #) 0.68 K/uL 0.24-0.86 eos # (test code = eos #) 0.12 K/uL 0.04-0.36 basophil # (test code = basophil 0.02 K/uL 0.01-0.08 #) NRBC% (test code = NRBC%) 0 /100 WBC 0-0.2 NRBC# (test code = NRBC#) 0 K/uL [facility]Blood type and Indirect antibody screen panel - Blood 2021-04-18 04:40:00 Test Item Value Reference Range Interpretation Comments Rh [Type] in Blood (test code = 4+ 71663-7) ABO and Rh group panel - Blood O positive (test code = 38753-8) [facility] Auto Differential panel - [id number] 04:40:00 Test Item Value Reference Range Interpretation Comments white blood count (test code = 10.3 K/uL 4.0-11.5 white blood count) red blood count (test code = red 4.30 M/uL 3.80-5.20 blood count) hemoglobin (test code = 13.3 g/dL 10.5-15.7 hemoglobin) hematocrit (test code = 38.5 % 34.0-50.0 hematocrit) MCV [Entitic volume] (test code = 89.5 fL 86.0-100.0 66890-8) mean corpuscular hemoglobin (test 30.9 pg 26.2-33.4 code = mean corpuscular hemoglobin) mean corpuscular HGB conc (test 34.5 g/dL 30.0-34.0 H code = mean corpuscular HGB conc) red cell distribution width (test 12.9 % 12.0-15.5 code = red cell distribution width) platelet count (test code = 205 K/uL 165-450 platelet count) mean platelet volume (test code = 11.8 fL 9.4-12.6 mean platelet volume) Segmented neutrophils/100 75.7 % 44.4-80.1 leukocytes in Blood (test code = 52721-4) Immature granulocytes [#/volume] 0.08 K/uL 0.00-0.03 H in Blood (test code = 63779-9) lymphocyte% (test code = 15.5 % 10.0-50.0 lymphocyte%) mono % (test code = mono %) 6.6 % 3.6-12.0 eos % (test code = eos %) 1.2 % 0.0-5.4 Basophils/100 leukocytes in 0.2 % 0.1-1.2 Specimen (test code = 23772-5) Band form neutrophils [#/volume] 7.81 K/uL 1.56-6.13 H in Blood (test code = 08019-9) Lymphocytes [#/volume] in Specimen 1.60 K/uL 1.18-3.74 by Automated count (test code = 67938-0) mono # (test code = mono #) 0.68 K/uL 0.24-0.86 eos # (test code = eos #) 0.12 K/uL 0.04-0.36 basophil # (test code = basophil 0.02 K/uL 0.01-0.08 #) NRBC% (test code = NRBC%) 0 /100 WBC 0-0.2 NRBC# (test code = NRBC#) 0 K/uL [facility] and Indirect antibody screen panel - Blood 2021-04-18 04:40:00 Test Item Value Reference Range Interpretation Comments Rh [Type] in Blood (test code = 4+ 68885-3) ABO and Rh group panel - Blood O positive (test code = 57821-6) [facility] HospitalDifferential panel, method unspecified - [id number] 00:00:00NeutrophilsBandLymphocyteAtypical LymphMonocyteEosinophilBasophilMyelocyteBlastsAbs Neutrophil Count(Man)Abs Lymph Count (Man)Abs Monocyte Count (Man)Abs Eosinophil Count (Man)Abs Basophil Count (Man)Platelet EstimatePlatelet MorphologyAnisocytosisMacrocytosisStomatocyteToxic GranulationHypersegmented PolysMatacharlotte hunger[facility] Medical GroupReagin Ab [Presence] in Serum by [id number] 00:00:00 Test Item Value Reference Range Interpretation Comments Reagin Ab [Presence] in Serum by nonreactive nonreactive RPR (test code = 14055-1) [facility] HospitalHepatitis B virus surface Ag [Presence] in Serum 2021-04-18 00:00:00 Test Item Value Reference Range Interpretation Comments .hepatitis B surface antigen (test negative negative code = .hepatitis B surface antigen) [facility] HospitalDifferential panel, method unspecified - [id number] 00:00:00NeutrophilsBandLymphocyteAtypical LymphMonocyteEosinophilBasophilMyelocyteBlastsAbs Neutrophil Count(Man)Abs Lymph Count (Man)Abs Monocyte Count (Man)Abs Eosinophil Count (Man)Abs Basophil Count (Man)Platelet EstimatePlatelet MorphologyAnisocytosisMacrocytosisStomatocyteToxic GranulationHypersegmented PolysMatanorwalk hospitala Medical GroupReagin Ab [Presence] in Serum by [id number] 00:00:00 Test Item Value Reference Range Interpretation Comments Reagin Ab [Presence] in Serum by nonreactive nonreactive RPR (test code = 60651-2) [facility] HospitalHepatitis B virus surface Ag [Presence] in Serum 2021-04-18 00:00:00 Test Item Value Reference Range Interpretation Comments .hepatitis B surface antigen (test negative negative code = .hepatitis B surface antigen) [facility] HospitalDifferential panel, method unspecified - [id number] 00:00:00NeutrophilsBandLymphocyteAtypical LymphMonocyteEosinophilBasophilMyelocyteBlastsAbs Neutrophil Count(Man)Abs Lymph Count (Man)Abs Monocyte Count (Man)Abs Eosinophil Count (Man)Abs Basophil Count (Man)Platelet EstimatePlatelet MorphologyAnisocytosisMacrocytosisStomatocyteToxic GranulationHypersegmented PolysMatagoRMC [facility] GroupReagin Ab [Presence] in Serum by [id number] 00:00:00 Test Item Value Reference Range Interpretation Comments Reagin Ab [Presence] in Serum by nonreactive nonreactive RPR (test code = 58303-7) [facility]He[facility]tis B [facility] surface Ag [Presence] in Serum 2021-04-18 00:00:00 Test Item Value Reference Range Interpretation Comments .hepatitis B surface antigen (test negative negative code = .hepatitis B surface antigen) [facility] HospitalUrinalysis macro (dipstick) panel - [id number] 11:12:21 Test Item Value Reference Range Interpretation Comments Leukocytes (test code = Leukocytes) Small Nitrite (test code = Nitrite) negative Urobilinogen (test code = .2 Urobilinogen) Protein (test code = Protein) Trace pH (test code = pH) 7.0 Blood (test code = Blood) Negative Specific Fowler (test code = 1.025 Specific Fowler) Ketone (test code = Ketone) Negative Bilirubin (test code = Bilirubin) Negative Glucose (test code = Glucose) Negative Appearance (test code = Appearance) Clear Color (test code = Color) Yellow [facility] HospitalUrinalysis macro (dipstick) panel - [id number] 11:12:21 Test Item Value Reference Range Interpretation Comments Leukocytes (test code = Leukocytes) Small Nitrite (test code = Nitrite) negative Urobilinogen (test code = .2 Urobilinogen) Protein (test code = Protein) Trace pH (test code = pH) 7.0 Blood (test code = Blood) Negative Specific Fowler (test code = 1.025 Specific Fowler) Ketone (test code = Ketone) Negative Bilirubin (test code = Bilirubin) Negative Glucose (test code = Glucose) Negative Appearance (test code = Appearance) Clear Color (test code = Color) Yellow [facility] HospitalUrinalysis macro (dipstick) panel - [id number] 11:12:21 Test Item Value Reference Range Interpretation Comments Leukocytes (test code = Leukocytes) Small Nitrite (test code = Nitrite) negative Urobilinogen (test code = .2 Urobilinogen) Protein (test code = Protein) Trace pH (test code = pH) 7.0 Blood (test code = Blood) Negative Specific Fowler (test code = 1.025 Specific Fowler) Ketone (test code = Ketone) Negative Bilirubin (test code = Bilirubin) Negative Glucose (test code = Glucose) Negative Appearance (test code = Appearance) Clear Color (test code = Color) Yellow [facility] HospitalChlamydia trachomatis+Neisseria gonorrhoeae DNA [Presence] in Specimen by NAHOMI with probe [id number] 00:00:00 Test Item Value Reference Range Interpretation Comments chlamydia trachomatis by real-time negative PCR (reflex to azithromycin resistance by pyrosequencing) (test code = chlamydia trachomatis by real-time PCR (reflex to azithromycin resistance by pyrosequencing)) neisseria gonorrhoeae by real-time negative PCR (reflex to antibiotic resistance by molecular analysis) (test code = neisseria gonorrhoeae by real-time PCR (reflex to antibiotic resistance by molecular analysis)) [facility] HospitalChlamydia trachomatis+Neisseria gonorrhoeae DNA [Presence] in Specimen by NAHOMI with probe [id number] 00:00:00 Test Item Value Reference Range Interpretation Comments chlamydia trachomatis by real-time negative PCR (reflex to azithromycin resistance by pyrosequencing) (test code = chlamydia trachomatis by real-time PCR (reflex to azithromycin resistance by pyrosequencing)) neisseria gonorrhoeae by real-time negative PCR (reflex to antibiotic resistance by molecular analysis) (test code = neisseria gonorrhoeae by real-time PCR (reflex to antibiotic resistance by molecular analysis)) [facility] HospitalUrinalysis macro (dipstick) panel - [id number] 11:18:05 Test Item Value Reference Range Interpretation Comments Leukocytes (test code = Leukocytes) Negative Nitrite (test code = Nitrite) negative Urobilinogen (test code = .2 Urobilinogen) Protein (test code = Protein) Trace pH (test code = pH) 6.0 Blood (test code = Blood) Negative Specific Fowler (test code = 1.030 Specific Fowler) Ketone (test code = Ketone) Negative Bilirubin (test code = Bilirubin) Small Glucose (test code = Glucose) Negative Appearance (test code = Appearance) Clear Color (test code = Color) Yellow [facility] HospitalUrinalysis macro (dipstick) panel - [id number] 11:18:05 Test Item Value Reference Range Interpretation Comments Leukocytes (test code = Leukocytes) Negative Nitrite (test code = Nitrite) negative Urobilinogen (test code = .2 Urobilinogen) Protein (test code = Protein) Trace pH (test code = pH) 6.0 Blood (test code = Blood) Negative Specific Fowler (test code = 1.030 Specific Fowler) Ketone (test code = Ketone) Negative Bilirubin (test code = Bilirubin) Small Glucose (test code = Glucose) Negative Appearance (test code = Appearance) Clear Color (test code = Color) Yellow [facility] GroupStreptococcus agalactiae [Presence] in Specimen by Organism specific [id number] 00:00:00 Test Item Value Reference Range Interpretation Comments group B streptococcus (gbs) by positive A real-time PCR (test code = group B streptococcus (gbs) by real-time PCR) group B streptococcus (gbs) antibiotic resistance by PCR (test code = group B streptococcus (gbs) antibiotic resistance by PCR) [facility] GroupStreptococcus agalactiae [Presence] in Specimen by Organism specific [id number] 00:00:00 Test Item Value Reference Range Interpretation Comments group B streptococcus (gbs) by positive A real-time PCR (test code = group B streptococcus (gbs) by real-time PCR) group B streptococcus (gbs) antibiotic resistance by PCR (test code = group B streptococcus (gbs) antibiotic resistance by PCR) [facility] HospitalUrinalysis macro (dipstick) panel - [id number] 10:55:25 Test Item Value Reference Range Interpretation Comments Leukocytes (test code = Leukocytes) Trace Nitrite (test code = Nitrite) negative Urobilinogen (test code = .2 Urobilinogen) Protein (test code = Protein) Negative pH (test code = pH) 7.0 Blood (test code = Blood) Negative Specific Fowler (test code = 1.020 Specific Fowler) Ketone (test code = Ketone) Negative Bilirubin (test code = Bilirubin) Negative Glucose (test code = Glucose) Negative Appearance (test code = Appearance) Clear Color (test code = Color) Yellow [facility] HospitalUrinalysis macro (dipstick) panel - [id number] 10:55:25 Test Item Value Reference Range Interpretation Comments Leukocytes (test code = Leukocytes) Trace Nitrite (test code = Nitrite) negative Urobilinogen (test code = .2 Urobilinogen) Protein (test code = Protein) Negative pH (test code = pH) 7.0 Blood (test code = Blood) Negative Specific Fowler (test code = 1.020 Specific Fowler) Ketone (test code = Ketone) Negative Bilirubin (test code = Bilirubin) Negative Glucose (test code = Glucose) Negative Appearance (test code = Appearance) Clear Color (test code = Color) Yellow [facility] HospitalUrinalysis macro (dipstick) panel - [id number] 10:55:25 Test Item Value Reference Range Interpretation Comments Leukocytes (test code = Leukocytes) Trace Nitrite (test code = Nitrite) negative Urobilinogen (test code = .2 Urobilinogen) Protein (test code = Protein) Negative pH (test code = pH) 7.0 Blood (test code = Blood) Negative Specific Fowler (test code = 1.020 Specific Fowler) Ketone (test code = Ketone) Negative Bilirubin (test code = Bilirubin) Negative Glucose (test code = Glucose) Negative Appearance (test code = Appearance) Clear Color (test code = Color) Yellow [facility] HospitalUrinalysis macro (dipstick) panel - [id number] 16:07:47 Test Item Value Reference Range Interpretation Comments Leukocytes (test code = Leukocytes) Negative Nitrite (test code = Nitrite) negative Urobilinogen (test code = .2 Urobilinogen) Protein (test code = Protein) Negative pH (test code = pH) 7.0 Blood (test code = Blood) Negative Specific Fowler (test code = 1.020 Specific Fowler) Ketone (test code = Ketone) Negative Bilirubin (test code = Bilirubin) Negative Glucose (test code = Glucose) Negative Appearance (test code = Appearance) Clear Color (test code = Color) Yellow [facility] HospitalUrinalysis macro (dipstick) panel - [id number] 16:07:47 Test Item Value Reference Range Interpretation Comments Leukocytes (test code = Leukocytes) Negative Nitrite (test code = Nitrite) negative Urobilinogen (test code = .2 Urobilinogen) Protein (test code = Protein) Negative pH (test code = pH) 7.0 Blood (test code = Blood) Negative Specific Fowler (test code = 1.020 Specific Fowler) Ketone (test code = Ketone) Negative Bilirubin (test code = Bilirubin) Negative Glucose (test code = Glucose) Negative Appearance (test code = Appearance) Clear Color (test code = Color) Yellow [facility] HospitalColony count [#/volume] in [id number] 00:00:00 Test Item Value Reference Range Interpretation Comments group B streptococcus (gbs) by negative real-time PCR (test code = group B streptococcus (gbs) by real-time PCR) escherichia coli by real-time PCR negative (test code = escherichia coli by real-time PCR) proteus mirabilis by real-time PCR negative (test code = proteus mirabilis by real-time PCR) staphylococcus saprophyticus by negative real-time PCR (test code = staphylococcus saprophyticus by real-time PCR) enterococcus faecalis by real-time negative PCR (test code = enterococcus faecalis by real-time PCR) enterococcus faecium by real-time negative PCR (test code = enterococcus faecium by real-time PCR) pseudomonas aeruginosa by real-time negative PCR (test code = pseudomonas aeruginosa by real-time PCR) klebsiella oxytoca by real-time PCR negative (test code = klebsiella oxytoca by real-time PCR) klebsiella pneumoniae by real-time negative PCR (test code = klebsiella pneumoniae by real-time PCR) [facility] HospitalUrinalysis macro (dipstick) panel - [id number] 10:20:14 Test Item Value Reference Range Interpretation Comments Leukocytes (test code = Negative Leukocytes) Nitrite (test code = negative Nitrite) Urobilinogen (test code = .2 Urobilinogen) Protein (test code = Negative Protein) pH (test code = pH) 8.5 Blood (test code = Blood) Non-Hemolyzed: Trace Specific Fowler (test 1.025 code = Specific Fowler) Ketone (test code = Negative Ketone) Bilirubin (test code = Negative Bilirubin) Glucose (test code = Negative Glucose) Appearance (test code = Slightly Cloudy Appearance) Color (test code = Color) Yellow [facility] HospitalUrinalysis macro (dipstick) panel - [id number] 10:20:14 Test Item Value Reference Range Interpretation Comments Leukocytes (test code = Negative Leukocytes) Nitrite (test code = negative Nitrite) Urobilinogen (test code = .2 Urobilinogen) Protein (test code = Negative Protein) pH (test code = pH) 8.5 Blood (test code = Blood) Non-Hemolyzed: Trace Specific Fowler (test 1.025 code = Specific Fowler) Ketone (test code = Negative Ketone) Bilirubin (test code = Negative Bilirubin) Glucose (test code = Negative Glucose) Appearance (test code = Slightly Cloudy Appearance) Color (test code = Color) Yellow [facility] HospitalDifferential panel, method unspecified - [id number] 00:00:00NeutrophilsBandLymphocyteAtypical LymphMonocyteEosinophilBasophilAbs Neutrophil Count (Man)Abs LymphCount (Man)Abs Monocyte Count (Man)Abs Eosinophil Count (Man)Abs Basophil Count (Man)Platelet EstimatePlatelet MorphologyAnisocytosisMataMississippi Baptist Medical CenterBlood group antibody screen [Presence] in Serum or [id number] 00:00:00 Test Item Value Reference Range Interpretation Comments Blood group antibody screen negative [Presence] in Serum or Plasma (test code = 890-4) [facility] HospitalUrinalysis macro (dipstick) panel - [id number] 10:35:54 Test Item Value Reference Range Interpretation Comments Leukocytes (test code = Leukocytes) Negative Nitrite (test code = Nitrite) negative Urobilinogen (test code = .2 Urobilinogen) Protein (test code = Protein) Negative pH (test code = pH) 7.5 Blood (test code = Blood) Negative Specific Fowler (test code = 1.015 Specific Fowler) Ketone (test code = Ketone) Negative Bilirubin (test code = Bilirubin) Negative Glucose (test code = Glucose) Negative Appearance (test code = Appearance) Clear Color (test code = Color) Yellow [facility] HospitalUrinalysis macro (dipstick) panel - [id number] 10:35:54 Test Item Value Reference Range Interpretation Comments Leukocytes (test code = Leukocytes) Negative Nitrite (test code = Nitrite) negative Urobilinogen (test code = .2 Urobilinogen) Protein (test code = Protein) Negative pH (test code = pH) 7.5 Blood (test code = Blood) Negative Specific Fowler (test code = 1.015 Specific Fowler) Ketone (test code = Ketone) Negative Bilirubin (test code = Bilirubin) Negative Glucose (test code = Glucose) Negative Appearance (test code = Appearance) Clear Color (test code = Color) Yellow [facility] HospitalUrinalysis macro (dipstick) panel - [id number] 15:05:10 Test Item Value Reference Range Interpretation Comments Leukocytes (test code = Leukocytes) Negative Nitrite (test code = Nitrite) negative Urobilinogen (test code = 1 Urobilinogen) Protein (test code = Protein) Negative pH (test code = pH) 7.0 Blood (test code = Blood) Negative Specific Fowler (test code = 1.000 Specific Fowler) Ketone (test code = Ketone) Negative Bilirubin (test code = Bilirubin) Negative Glucose (test code = Glucose) Negative Appearance (test code = Appearance) Clear Color (test code = Color) Yellow [facility] HospitalUrinalysis macro (dipstick) panel - [id number] 15:05:10 Test Item Value Reference Range Interpretation Comments Leukocytes (test code = Leukocytes) Negative Nitrite (test code = Nitrite) negative Urobilinogen (test code = 1 Urobilinogen) Protein (test code = Protein) Negative pH (test code = pH) 7.0 Blood (test code = Blood) Negative Specific Fowler (test code = 1.000 Specific Fowler) Ketone (test code = Ketone) Negative Bilirubin (test code = Bilirubin) Negative Glucose (test code = Glucose) Negative Appearance (test code = Appearance) Clear Color (test code = Color) Yellow [facility] HospitalUrinalysis macro (dipstick) panel - [id number] 13:49:52 Test Item Value Reference Range Interpretation Comments Leukocytes (test code = Leukocytes) Negative Nitrite (test code = Nitrite) negative Urobilinogen (test code = .2 Urobilinogen) Protein (test code = Protein) Negative pH (test code = pH) 6.5 Blood (test code = Blood) Negative Specific Fowler (test code = 1.025 Specific Fowler) Ketone (test code = Ketone) Negative Bilirubin (test code = Bilirubin) Small Glucose (test code = Glucose) Negative Appearance (test code = Appearance) Clear Color (test code = Color) Yellow [facility] HospitalUrinalysis macro (dipstick) panel - [id number] 13:49:52 Test Item Value Reference Range Interpretation Comments Leukocytes (test code = Leukocytes) Negative Nitrite (test code = Nitrite) negative Urobilinogen (test code = .2 Urobilinogen) Protein (test code = Protein) Negative pH (test code = pH) 6.5 Blood (test code = Blood) Negative Specific Fowler (test code = 1.025 Specific Fowler) Ketone (test code = Ketone) Negative Bilirubin (test code = Bilirubin) Small Glucose (test code = Glucose) Negative Appearance (test code = Appearance) Clear Color (test code = Color) Yellow [facility] HospitalCT + NG + TV, DNA, urine/[id number] 00:00:00 Test Item Value Reference Range Interpretation Comments chlamydia trachomatis by real-time negative PCR (reflex to azithromycin resistance by pyrosequencing) (test code = chlamydia trachomatis by real-time PCR (reflex to azithromycin resistance by pyrosequencing)) trichomonas vaginalis by real-time negative PCR (reflex to metronidazole resistance) (test code = trichomonas vaginalis by real-time PCR (reflex to metronidazole resistance)) neisseria gonorrhoeae by real-time negative PCR (reflex to antibiotic resistance by molecular analysis) (test code = neisseria gonorrhoeae by real-time PCR (reflex to antibiotic resistance by molecular analysis)) [facility] HospitalBacteria identified in Urine by [id number] 09:11:00Bacteria Ur [facility] Differential panel - [id number] 09:11:00 Test Item Value Reference Range Interpretation Comments white blood count (test code = 8.7 K/uL 4.0-11.5 white blood count) red blood count (test code = red 4.50 M/uL 3.80-5.20 blood count) hemoglobin (test code = 13.3 g/dL 10.5-15.7 hemoglobin) hematocrit (test code = 40.2 % 34.0-50.0 hematocrit) MCV [Entitic volume] (test code = 89.3 fL 86-100 53521-1) mean corpuscular hemoglobin (test 29.6 pg 26.2-33.4 code = mean corpuscular hemoglobin) mean corpuscular HGB conc (test 33.1 g/dL 30-34 code = mean corpuscular HGB conc) red cell distribution width (test 12.2 % 12.0-15.5 code = red cell distribution width) platelet count (test code = 216 K/uL 165-450 platelet count) mean platelet volume (test code = 11.1 fL 9.4-12.6 mean platelet volume) Segmented neutrophils/100 78.3 % 44.4-80.1 leukocytes in Blood (test code = 88202-1) Immature granulocytes [#/volume] 0.1 K/uL 0.0-0.03 H in Blood (test code = 06975-1) lymphocyte% (test code = 15.1 % 10.0-50.0 lymphocyte%) mono % (test code = mono %) 4.7 % 3.6-12.0 eos % (test code = eos %) 1.1 % 0.0-5.4 Basophils/100 leukocytes in 0.2 % 0.1-1.2 Unspecified specimen (test code = 12388-0) Band form neutrophils [#/volume] 6.81 K/uL 1.56-6.13 H in Blood (test code = 54125-9) Lymphocytes [#/volume] in 1.3 K/uL 1.18-3.74 Unspecified specimen by Automated count (test code = 43198-6) mono # (test code = mono #) 0.41 K/uL 0.24-0.86 eos # (test code = eos #) 0.10 K/uL 0.04-0.36 basophil # (test code = basophil 0.02 K/uL 0.01-0.08 #) NRBC% (test code = NRBC%) 0 /100 WBC 0-0.2 NRBC# (test code = NRBC#) 0 K/uL [facility] HospitalABO & Rh group [Type] in [id number] 09:11:00 Test Item Value Reference Range Interpretation Comments Rh [Type] in Blood (test code = 4+ 48232-9) ABO and Rh group panel - Blood O positive (test code = 51215-0) [facility] HospitalBlood group antibody screen [Presence] in Serum or Plasma 2020-10-31 09:11:00 Test Item Value Reference Range Interpretation Comments Blood group antibody screen negative [Presence] in Serum or Plasma (test code = 890-4) [facility] HospitalDifferential panel, method unspecified - [id number] 00:00:00NeutrophilsBandLymphocyteAtypical LymphMonocyteEosinophilBasophilMetamyelocyteNucleated Red Blood CellAbs Neutrophil Count (Man)Abs Lymph Count (Man)Abs Monocyte Count (Man)Abs Eosinophil Count (Man)Abs Basophil Count (Man)Platelet EstimatePlatelet MorphologyHypochromasiaBasophilic StipplingAnisocytosisMicrocytosisToxic GranulationToxic VacuolationMaVernon Memorial Hospital GroupHIV 1+2 Ab [Presence] in [id number] 00:00:00HIV P24 AgHIV-1/2 AbMaForrest General HospitalReagin Ab [Presence] in Serum by [id number] 00:00:00 Test Item Value Reference Range Interpretation Comments Reagin Ab [Presence] in Serum by nonreactive nonreactive RPR (test code = 73978-5) [facility] HospitalHepatitis B virus surface Ag [Presence] in Serum 2020-10-31 00:00:00 Test Item Value Reference Range Interpretation Comments .hepatitis B surface antigen (test negative negative code = .hepatitis B surface antigen) [facility] HospitalChromosome 13+18+21+X+Y aneuploidy in Blood by Molecular genetics method [id number] 00:00:00 Test Item Value Reference Range Interpretation Comments report summary (test code see notes = report summary) report note (test code = see notes report note) trisomy 13 age-based risk 1,389 (0.01%) text (test code = trisomy 13 age-based risk text) trisomy 13 risk score text <1/,000 (<0.01%) (test code = trisomy 13 risk score text) trisomy 13 result text low risk (test code = trisomy 13 result text) trisomy 18 age-based risk 1/3,015 (0.03%) text (test code = trisomy 18 age-based risk text) trisomy 18 risk score text <1/10,000 (<0.01%) (test code = trisomy 18 risk score text) trisomy 18 result text low risk (test code = trisomy 18 result text) trisomy 21 age-based risk 11,140 (0.09%) text (test code = trisomy 21 age-based risk text) trisomy 21 risk score text <1/10,000 (<0.01%) (test code = trisomy 21 risk score text) trisomy 21 result text low risk (test code = trisomy 21 result text) monosomy X age-based risk 1568 (0.18%) text (test code = monosomy X age-based risk text) monosomy X risk score text <1/10,000 (<0.01%) (test code = monosomy X risk score text) monosomy X result text low risk (test code = monosomy X result text) triploidy result text low risk (test code = triploidy result text) gender of fetus (test code male = gender of fetus) fraction (test code 5.9% = fraction) footnotes (test code = see notes footnotes) [facility] HospitalGenetic screen in Unspecified specimen by Molecular genetics method [id number] 00:00:00 Test Item Value Reference Range Interpretation Comments report summary (test code = report negative summary) alpha-thalassemia (test code = negative alpha-thalassemia) 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, cln3-related) (test code = franky disease (neuronal ceroid lipofuscinosis, cln3-related)) beta-hemoglobinopathies (test code negative = beta-hemoglobinopathies) 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) troy disease (test code = negative troy disease) citrullinemia, type I (test code = negative citrullinemia, type I) cystic fibrosis (test code = cystic negative fibrosis) duchenne/lyle muscular dystrophy negative (test code = duchenne/lyle muscular dystrophy) familial dysautonomia (test code = negative familial dysautonomia) fanconi anemia, group C (test code negative = fanconi anemia, group C) fragile X syndrome (test code = negative fragile X syndrome) galactosemia (test code = negative galactosemia) gaucher disease (test code = negative gaucher disease) glycogen storage disease, type 1A negative (test code = glycogen storage disease, type 1A) isovaleric acidemia (test code = negative isovaleric acidemia) medium chain acyl-coa dehydrogenase negative deficiency (test code = medium chain acyl-coa dehydrogenase deficiency) methylmalonic aciduria and negative homocystinuria, type cblc (test code = methylmalonic aciduria and homocystinuria, type cblc) mucolipidosis, type IV (test code = negative mucolipidosis, type IV) mucopolysaccharidosis, 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) (test code = mucopolysaccharidosis, type I (hurler syndrome)) aston-pick disease, types A/B negative (test code = aston-pick disease, types A/B) polycystic kidney disease, negative autosomal recessive (test code = polycystic kidney disease, autosomal recessive) 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, type I (test code = rhizomelic chondrodysplasia punctata, type I) cucny-iovja-hkdlm syndrome (test negative code = ntttj-vwoay-vlwui syndrome) spinal muscular atrophy (test code negative = spinal muscular atrophy) radha-sachs disease (test code = negative radha-sachs disease) tyrosinemia, type I (test code = negative tyrosinemia, type I) zellweger spectrum disorders, negative pex1-related (test code = zellweger spectrum disorders, pex1-related) panel notes (test code = panel see notes notes) report note (test code = report see notes note) footnotes (test code = footnotes) see notes [facility]
[2022-06-16 20:15] LABS: Hematocrit 41.8 % (36.0-45.0); Lymphocytes % 14.7 % (15.3-44.8); MCV 89.7 fL (80-100); RBC Red Blood Cell Count 4.66 M/uL (3.86-4.86)
[2022-06-16 20:26] LABS: Albumin 3.6 g/dL (3.4-5.0); Bilirubin Total 0.3 mg/dL (0.2-1.0); Potassium 3.7 mEq/L (3.5-5.1); Protein, Total 8.2 g/dL (6.4-8.2)
[2022-06-16 20:29] LABS: Specific Gravity 1.017 (1.005-1.030); Urine Bilirubin NEGATIVE (Negative); Urine Blood Negative (Negative); Urine Clarity Clear (Clear); Urine Color Colorless (Yellow); Urine Glucose NEGATIVE (Negative); Urine Protein NEGATIVE (Negative); Urine Urobilinogen Normal (Normal)
[2022-06-16 20:35] LABS: Specific Gravity 1.017 (1.005-1.030)
[2022-06-16] MEDS ORDERED: LORazepam 2 MG/ML VIAL ONE (21:35)
[2022-06-16] MEDS ORDERED: MORPHINE 4 MG/ML SYR ONE (21:35)
[2022-06-16] MEDS ORDERED: NA CHLORIDE 0.9% 1,000 ML ONE (21:35)
[2022-06-16] MEDS ORDERED: ONDANSETRON 4 MG/2 ML VIAL ONE (21:35)
--- NOTE | 2022-06-16 21:43 | RAD REPORT ---
EXAM DESCRIPTION: CT - Head Brain Wo Cont - 06/16/2022 9:03 pm CLINICAL HISTORY: headache, vomiting COMPARISON: Head Brain Wo Cont dated 05/22/2022; CT HEAD BRAIN WWO CONTRAST dated 12/29/2014 TECHNIQUE: Noncontrast head CT images ad were obtained without IV contrast. Multiplanar reformats we re generated and reviewed. All CT scans are performed using dose optimization technique as appropriate and may include automated exposure control or mA/KV adjustment according to patient size. FINDINGS: No intracranial hemorrhage, mass, or edema. Midline structures are unremarkable. Normal ventricular caliber for age. Chappell-white matter differentiation is preserved, without evidence of acute infarct. No abnormal extra- axial fluid collections. Mastoid air cells and visualized portions of the paranasal sinuses are clear. No acute bony findings. IMPRESSION: No evidence of an acute intracranial process.
--- NOTE | 2022-06-16 21:49 | RAD REPORT ---
EXAM DESCRIPTION: CT - Abdomen Pelvis W Contrast - 06/16/2022 9:03 pm CLINICAL HISTORY: ABD PAIN COMPARISON: No comparisons TECHNIQUE: Thin cut axial CT imaging of the abdomen and pelvis was performed following intravenous a dministration of 100 mL Isovue 300. Multiplanar reformats were generated and reviewed. All CT scans are performed using dose optimization technique as appropriate and may include automated exposure control or mA/KV adjustment according to patient size. FINDINGS: No suspicious findings in the lung bases. The liver, spleen, and pancreas show no suspicious findings. Status post cholecystectomy. No intra or extrahepatic biliary ductal dilation. Symmetric renal function is seen with no hydronephrosis or suspicious renal mass. No dilated bowel loops or bowel wall thickening. Nonspecific fluid opacification of small bowel loops in the left upper quadrant. No free air, free fluid or inflammatory stranding. No hernia, mass or bu lky lymphadenopathy. The urinary bladder is without significant finding. No suspicious bony findings. IMPRESSION: No acute intra-abdominal process. Nonspecific fluid opacification of small bowel loops in the left upper quadrant, could relate to diarrheal state or enteritis.
--- NOTE | 2022-06-16 22:20 | EDPHYS ---
Physician Documentation [facility] Name: Chayito Zamudio Age: 21 yrs Sex: Female : 2000 Arrival Date: 06/16/2022 Time: 19:27 Bed 16 Private MD: ED Physician Pablo Madera HPI: 06/16 19:41 This 21 yrs old Female presents to ER via Ambulatory with complaints of jmm Nausea/Vomiting, Abdominal Pain, Headache, Shortness Of Breath, General Weakness, Dizziness. 19:41 The patient presents to the emergency department with nausea, vomiting, diarrhea, jmm abdominal pain. Onset: The symptoms/episode began/occurred gradually. Is a 21-year-old female with history of seizures that presents emerged part with complaints of abdominal pain which is worsened throughout the day. Complains of diarrhea and vomiting. Also complains of ongoing chronic headache which has been evaluated multiple times in the ER. Patient states having negative MRI at [facility].. 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 - Social history:: Smoking status: Patient denies any tobacco usage or history of. ROS: 19:41 Constitutional: Negative for fever, chills, and weight loss, Cardiovascular: Negative jmm for chest pain, palpitations, and edema, Respiratory: Negative for shortness of breath, cough, wheezing, and pleuritic chest pain. 19:41 Abdomen/GI: Positive for abdominal pain, nausea and vomiting, diarrhea. 19:41 Neuro: Positive for headache. 19:41 All other systems are negative. Exam: 19:41 Constitutional: This is a well developed, well nourished patient who is awake, alert, jmm and in no acute distress. Head/Face: atraumatic. Eyes: EOMI, no conjunctival erythema appreciated ENT: Moist Mucus Membranes Neck: Trachea midline, Supple Chest/axilla: Normal chest wall appearance and motion. Cardiovascular: Regular rate and rhythm. No edema appreciated Respiratory: Normal respirations, no respiratory distress appreciated 19:41 Back: Normal ROM Skin: General appearance color normal MS/ Extremity: Moves all extremities, no obvious deformities appreciated, no edema noted to the lower extremities Neuro: Awake and alert Psych: Behavior is normal, Mood is normal, Patient is cooperative and pleasant 19:41 Abdomen/GI: Inspection: abdomen appears normal, Bowel sounds: normal, Palpation: soft, mild abdominal tenderness, in all quadrants. Vital Signs: 19:38 BP 131 / 82; Pulse 81; Resp 16; Temp 97.9; Pulse Ox 98% on R/A; Weight 96.16 kg; Height mb9 5 ft. 1 in. ; 21:00 BP 138 / 96; Pulse 88; Resp 16 S; Pulse Ox 99% on R/A; ha1 22:00 BP 135 / 95; Pulse 88; Resp 16 S; Pulse Ox 99% on R/A; ha1 23:00 BP 134 / 92; Pulse 82; Resp 15 S; Pulse Ox 98% on R/A; ha1 19:38 Body Mass Index 40.06 (96.16 kg, 154.94 cm) mb9 MDM: 19:41 Patient medically screened. [facility] 22:18 Differential diagnosis: Nonspecific abd pain, gastritis, pancreatitis, appendicitis, [facility] diverticulitis, viral gastroenteritis, gastroenteritis. Data reviewed: vital signs, nurses notes, lab test result(s), radiologic studies, CT scan. I considered the following discharge prescriptions or medication management in the emergency department Medications were administered in the Emergency Department. See MAR. Counseling: I had a detailed discussion with the patient and/or guardian regarding: the historical points, exam findings, and any diagnostic results supporting the discharge/admit diagnosis, lab results, radiology results, the need for outpatient follow up, to return to the emergency department if symptoms worsen or persist or if there are any questions or concerns that arise at home. 06/16 19:42 Order name: CBC with Diff; Complete Time: 20:46 [facility] 06/16 19:42 Order name: CMP; Complete Time: 20:46 [facility] 06/16 19:42 Order name: Lipase; Complete Time: 20:46 [facility] 06/16 19:43 Order name: PREGU; Complete Time: 20:46 [facility] 06/16 19:43 Order name: Urinalysis w/ reflexes; Complete Time: 20:46 [facility] 06/16 19:42 Order name: CT Abd/Pelvis - IV Contrast Only; Complete Time: 21:53 [facility] 06/16 19:45 Order name: CT Head Brain wo Cont; Complete Time: 21:53 [facility] 06/16 19:42 Order name: IV Saline Lock; Complete Time: 21:23 [facility] 06/16 19:42 Order name: Labs collected and sent; Complete Time: 20:02 [facility] Administered Medications: 21:25 Drug: Ativan IVP 1 mg Route: IVP; Site: left antecubital; ha1 21:26 Drug: NS 0.9% IV 1000 ml Route: IV; Rate: 1 bolus; Site: left antecubital; ha1 21:28 Drug: Ondansetron IVP 4 mg Route: IVP; Site: left antecubital; ha1 21:32 Drug: morphine IVP or IV 4 mg Route: IVP; Infused Over: 4 mins; Site: left antecubital; ha1 Disposition Summary: 06/16/22 22:19 Discharge Ordered Location: Home [facility] Condition: Stable [facility] Diagnosis - Abdominal pain, unspecified [facility] - Headache [facility] Followup: [facility] - With: Private Physician - When: 2 - 3 days - Reason: Recheck today's complaints, Continuance of care, Re-evaluation by your physician Discharge Instructions: - Discharge Summary Sheet [facility] - Abdominal Pain, Adult [facility] - General Headache Without Cause [facility] Forms: - Medication Reconciliation Form [facility] - Thank You Letter [facility] - Antibiotic Education [facility] - Prescription Opioid Use [facility] Prescriptions: - ondansetron 4 mg Oral Tablet,disintegrating - take 1 tablet by ORAL route every 4 to 6 hours As needed; 20 tablet; Refills: [facility] 0, Product Selection Permitted - Carafate 1 gram Oral Tablet - take 1 tablet by ORAL route 4 times per day take on an empty stomach, beginning jm on waking and last dose at bedtime; 100 tablet; Refills: 0, Product Selection Permitted - dicyclomine 20 mg Oral Tablet - take 1 tablet by ORAL route 3 times per day As needed; 30 tablet; Refills: 0, [facility] Product Selection Permitted Signatures: Dispatcher [employer] Andrea Camacho PA PA [facility] Yolette Ramirez RN RN ha1 Nya Tan RN RN mb9 Corrections: (The following items were deleted from the chart) 21:51 20:48 Abdomen Limited+[id number].BRZ ordered. EDMS EDMS
--- NOTE | 2022-06-16 22:20 | ER ---
Nurse's Notes [facility] Name: Chayito Zamudio Age: 21 yrs Sex: Female : 2000 Arrival Date: 06/16/2022 Time: 19:27 Bed 16 Private MD: Diagnosis: Abdominal pain, unspecified;Headache Presentation: 06/16 19:38 Chief complaint:. Coronavirus screen: At this time, the client does not indicate any [facility] symptoms associated with coronavirus-19. Ebola Screen: No symptoms or risks identified at this time. Initial Sepsis Screen: Does the patient meet any 2 criteria? No. Patient's initial sepsis screen is negative. Does the patient have a suspected source of infection? No. Patient's initial sepsis screen is negative. Risk Assessment: Do you want to hurt yourself or someone else? Patient reports no desire to harm self or others. Onset of symptoms was June 16, 2022. 19:38 Method Of Arrival: Ambulatory [facility] 19:38 Acuity: PAT 3 [facility] 19:40 Chief complaint: Patient states: "I started having right lower abdominal pain 2 days mb9 ago. I've been vomiting, diarrhea, constipation, and nauseous". Triage Assessment: 19:41 General: Appears uncomfortable, Behavior is cooperative. Pain: Complains of pain in mb9 abdomen Pain currently is 10 out of 10 on a pain scale. Quality of pain is described as aching, stabbing, Pain began 2-3 days ago. Neuro: Level of Consciousness is awake, alert, obeys commands, Oriented to person, place, time, situation, Appropriate for age. Respiratory: Airway is patent Respiratory effort is even, unlabored, Respiratory pattern is regular, symmetrical. GI: Abdomen is obese, Abdomen is tender to palpation in right upper quadrant and right lower quadrant Reports constipation, diarrhea, nausea, vomiting. Derm: Skin is pink, warm \\T\\ dry. Musculoskeletal: Range of motion: intact in all extremities. 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 - Social history:: Smoking status: Patient denies any tobacco usage or history of. Screenin:50 Abuse screen: Denies threats or abuse. Denies injuries from another. Nutritional ha1 screening: No deficits noted. Tuberculosis screening: No symptoms or risk factors identified. 20:50 [facility] ED Fall Risk Assessment (Adult) History of falling in the last 3 months, ha1 including since admission No falls in past 3 months (0 pts) Confusion or Disorientation No (0 pts) Intoxicated or Sedated No (0 pts) Impaired Gait No (0 pts) Mobility Assist Device Used No (0 pt) Altered Elimination No (0 pt) Score/Fall Risk Level 0 - 2 = Low Risk Oriented to surroundings, Maintained a safe environment, Educated pt \\T\\ family on fall prevention, incl call for assistance when getting out of bed. Assessment: 19:42 Reassessment: see triage assessment. 9 19:50 General: Behavior is calm, cooperative. Pain: Complains of pain in abdomen Pain does ha1 not radiate. Pain currently is 5 out of 10 on a pain scale. Quality of pain is described as crampy. Neuro: Level of Consciousness is awake, Oriented to person, place, time, situation. Cardiovascular: Reports Capillary refill < 3 seconds Patient's skin is warm and dry. Respiratory: Airway is patent Respiratory effort is even, unlabored, Respiratory pattern is regular, symmetrical. GI: Abdomen is round non-distended, Bowel sounds present X 4 quads. Abd is soft and non tender X 4 quads. Reports lower abdominal pain, nausea, vomiting. : No signs and/or symptoms were reported regarding the genitourinary system. Derm: Skin is pink, warm \\T\\ dry. Musculoskeletal: Circulation, motion, and sensation intact. Range of motion: intact in all extremities. 20:50 Reassessment: Patient and/or family updated on plan of care and expected duration. Pain ha1 level reassessed. Patient is alert, oriented x 3, equal unlabored respirations, skin warm/dry/pink. Patient states feeling better. Patient states symptoms have improved. 21:50 Reassessment: Patient and/or family updated on plan of care and expected duration. Pain ha1 level reassessed. Patient is alert, oriented x 3, equal unlabored respirations, skin warm/dry/pink. Patient states feeling better. Patient states symptoms have improved. 22:50 Reassessment: Patient and/or family updated on plan of care and expected duration. Pain ha1 level reassessed. Patient is alert, oriented x 3, equal unlabored respirations, skin warm/dry/pink. Patient states feeling better. Patient states symptoms have improved. Vital Signs: 19:38 BP 131 / 82; Pulse 81; Resp 16; Temp 97.9; Pulse Ox 98% on R/A; Weight 96.16 kg; Height mb9 5 ft. 1 in. ; 21:00 BP 138 / 96; Pulse 88; Resp 16 S; Pulse Ox 99% on R/A; ha1 22:00 BP 135 / 95; Pulse 88; Resp 16 S; Pulse Ox 99% on R/A; ha1 23:00 BP 134 / 92; Pulse 82; Resp 15 S; Pulse Ox 98% on R/A; ha1 19:38 Body Mass Index 40.06 (96.16 kg, 154.94 cm) mb9 ED Course: 19:31 Patient arrived in ED. [email or web address] 19:31 Andrea Andrew PA is PHCP. [facility] 19:31 Pablo Madera MD is Attending Physician. [facility] 19:38 Arm band placed on. mb9 19:40 Triage completed. mb9 19:45 Radiology exam delayed due to test not completed at this time. IV insertion [id number] attempt and/or patient not having appropriate IV at this time. 19:50 Patient has correct armband on for positive identification. Placed in gown. Bed in low ha1 position. Call light in reach. Side rails up X 1. 20:02 CBC with Diff Sent. mb9 20:02 CMP Sent. mb9 20:02 Lipase Sent. mb9 21:01 Note: 22g diffusics insterted into LAC, using aseptic technique by KARON [employer].. [email or web address] 21:04 CT Abd/Pelvis - IV Contrast Only In Process Unspecified. EDMS 21:04 CT Head Brain wo Cont In Process Unspecified. EDMS 21:23 Yolette Ramirez, RN is Primary Nurse. ha1 23:03 No provider procedures requiring assistance completed. ha1 23:03 IV discontinued, intact, bleeding controlled, No redness/swelling at site. Pressure ha1 dressing applied. Administered Medications: 21:25 Drug: Ativan IVP 1 mg Route: IVP; Site: left antecubital; ha1 21:26 Drug: NS 0.9% IV 1000 ml Route: IV; Rate: 1 bolus; Site: left antecubital; ha1 21:28 Drug: Ondansetron IVP 4 mg Route: IVP; Site: left antecubital; ha1 21:32 Drug: morphine IVP or IV 4 mg Route: IVP; Infused Over: 4 mins; Site: left antecubital; ha1 Medication: 23:03 VIS not applicable for this client. ha1 Outcome: 22:19 Discharge ordered by . lamberto 23:03 Patient left the ED. ha1 23:03 Discharged to home ambulatory. ha1 23:03 Condition: stable 23:03 Discharge instructions given to patient, Instructed on discharge instructions, follow ha1 up and referral plans. medication usage, Demonstrated understanding of instructions, follow-up care, medications, Prescriptions given X 3. Signatures: Dispatcher [employer] EDMS Andrea Andrew PA PA jmm Jeffries, Jennifer [id number] Yolette Ramirez, RN RN ha1 Danna Rivas j0 Nya Tan RN RN mb9
[2022-06-16 23:29] VITALS: TEMP 97.9
[2022-06-16 23:31] VITALS: BP 138/96; O2SAT 99
== END 2022-06-16 23:03 | disposition home or self-care (01) ==
LOC: ER 19:27
DX: R10.84 Generalized abdominal pain (principal); R51.9 Headache, unspecified
CPT/HCPCS: 85025; 36415; 81025; 81003; 83690; 80053; 70450; 74177; 96375; 96374; 99284; Q9967; J2405; J7030